=== PATIENT | female | born 1955 | race Caucasian/White ===

== ENCOUNTER → 2017-07-02 20:05 | Outpatient (CLI) | payer OTHER, SELFPAY | PROVIDERS: Visit Provider Nurse Practitioner Acute Care | DX: G47.33 Obstructive sleep apnea (adult) (pediatric) (principal); F03.90 Unspecified dementia, unspecified severity, without behavioral disturbance, psychotic disturbance, mood disturbance, and anxiety; R06.83 Snoring; R45.1 Restlessness and agitation | CPT/HCPCS: 95810 ==

== ENCOUNTER → 2017-08-07 19:57 | Outpatient (CLI) | payer OTHER, SELFPAY | PROVIDERS: Family Provider Family Medicine; PCP Family Medicine; Visit Provider Nurse Practitioner Acute Care | DX: G47.33 Obstructive sleep apnea (adult) (pediatric) (principal) | CPT/HCPCS: 95811 ==

== ENCOUNTER → 2018-02-21 16:43 | Outpatient (CLI) | payer OTHER, SELFPAY ==
[2018-02-21 17:16] LABS: Absolute Lymphocyte Count 1.69 X10^3/ul (0.83-4.51); Basophil# 0.05 X10^3/uL; Basophil% 0.8 % (0-1); Eosinophil# 0.29 X10^3/uL; Eosinophils% 4.4 % (0-5); Hematocrit 41.2 % (37-47); Hemoglobin 13.3 g/dl (12.0-15.0); Immature Platelet Fraction 1.1 % (1.0-7.9); Lymphocyte # 1.69 X10^3/ul (4.0); Lymphocyte % 25.6 % (19-41); Mean Corp Hgb Conc 32.3 g/gl (32-36); Mean Corpuscular Hgb 30.4 pg (27.0-32.0); Mean Corpuscular Volume 94.3 fL (81-99); Mean Platelet Vol. 9.8 fl (6.2-12.0); Monocyte# 0.53 X10^3/uL; Neutrophil # 4.02 X10^3/uL (2.7-7.7); Platelet Count 309 K/mm3 (150-450); RBC Distribution Width CV 12.6 % (11.6-14.6); RBC Distribution Width SD 43.5 fl (35.1-43.9); Red Blood Count 4.37 M/mm3 (4.2-5.4); Reticulocyte Count 1.28 % (0.5-1.5); White Blood Count 6.6 K/mm3 (4.4-11.0)
[2018-02-21 17:20] LABS: POSITIVE COUNT NO; POSITIVE DIFFERENTIAL NO; POSITIVE MORPHOLOGY NO
[2018-02-21 17:48] LABS: Vitamin B12 677 pg/mL (211-911); Vitamin D,25 Hydroxy 33.1 ng/mL (29.95-100.01)
[2018-02-21 17:49] LABS: Erythrocyte Sedimentation Rate 1 mm/hr (0-30)
[2018-02-21 18:26] LABS: Anion Gap 7 (5-15); BUN 16 mg/dL (7-18); BUN/Creat Ratio 20.3 RATIO (10-20); Calcium,Total 9.1 mg/dL (8.5-10.1); Chloride 102 mmol/L (98-107); Creatinine, Serum 0.79 mg/dL (0.55-1.02); EST Glomerular Filtration Rate 78 mL/min (>60); Est Glom Filt Rate - Afr Amer 94 mL/min (>60); Ferritin 32 ng/mL (8-252); Free T3 2.3 pg/mL (2.18-3.98); Glucose 102 mg/dL (74-106); Iron 72 ug/dL (50-170); Iron Binding Capacity,Total 349 ug/dL (250-450); Magnesium 2.2 mg/dL (1.6-2.6); Phosphorus 4.2 mg/dL (2.5-4.9); Potassium 3.9 mmol/L (3.5-5.1); Sodium Level 141 mmol/L (136-145); T4 Free Direct 0.94 ng/dL (0.76-1.46); Thyroid Stim Hormone (TSH) 0.55 uIU/mL (0.358-3.74)
== END ==
PROVIDERS: Family Provider Family Medicine; PCP Family Medicine; Referring Provider Nurse Practitioner Acute Care; Visit Provider Nurse Practitioner Acute Care
DX: E61.1 Iron deficiency (principal); G47.33 Obstructive sleep apnea (adult) (pediatric)
CPT/HCPCS: 36415; 80048; 82306; 82607; 82728; 82746; 83540; 83550; 83735; 84100; 84439; 84443; 84481; 85025; 85045; 85652

== ENCOUNTER → 2019-02-04 10:02 | Outpatient (CLI) | payer MEDICARE, SELFPAY ==
--- NOTE | 2019-02-04 10:27 | MRI_ITS ---
STUDY: MRI BRAIN WITH AND WITHOUT CONTRAST REASON FOR EXAM: Female, 63 years old. MA loss, chronic sinus infection, headaches TECHNIQUE: Standardized multiplanar fat and water weighted pulse sequences were obtained. IV Dotarem 10 was administered for the contrast portion of the examination. COMPARISON: None. FINDINGS: FINDINGS: The diffusion weighted axial images and ADC map images of the head show no evidence of restricted diffusion. The rob, medulla and midbrain and cerebellum appear to be normal. The ventricles and sulci are normal in size and shape. The cerebral hemispheres appear to be normal.The basal ganglia appear to be normal. No enhancing masses or lesions are seen. The gradient echo axial images are normal. No evidence of a Chiari I malformation is identified. The V4 segments of the vertebral artery, the basilar artery, the posterior cerebral arteries, the cavernous and supraclinoid carotid arteries, and the M1 segments of the middle cerebral arteries are all normal The orbits including the optic nerves and optic chiasm appear normal. The pituitary and pituitary infundibulum appear to be normal. The inner and outer tables of the skull are normal The frontal, and sphenoid sinuses are normal. A very mild amount of mucoperiosteal reaction as the floor of the maxillary sinuses and in the ethmoid sinuses due to a low-grade sinusitis. The mastoid air cells are normal. MRI/Brain W/WO Contrast IMPRESSION: Low-grade ethmoid and maxillary sinusitis. The overall all MRI appearance of the brain is normal. Electronically Signed: Baudilio Vora, at 12:51 EDT Tel , Service support ,
[2019-02-04 12:00] LABS: CREATININE FINGERSTICK 0.7 mg/dL (0.55-1.02); EGFR FINGERSTICK > 60.0000 mL/min (>60)
== END ==
PROVIDERS: Family Provider Family Medicine; PCP Family Medicine; Referring Provider Nurse Practitioner Family; Visit Provider Nurse Practitioner Family
DX: R41.3 Other amnesia (principal)
CPT/HCPCS: 70553; A9575

== ENCOUNTER → 2020-04-19 15:01 | Outpatient (CLI) | payer MEDICARE, SELFPAY ==
[2020-04-19 15:31] LABS: Creatinine, Serum 0.68 mg/dL (0.55-1.02); EST Glomerular Filtration Rate 93 mL/min (>60); Est Glom Filt Rate - Afr Amer 112 mL/min (>60)
--- NOTE | 2020-04-19 15:42 | CT_ITS ---
HISTORY: SPONDYLOLYSIS-PT HAVING LUMBAR SURG, CT DONE FOR VASCULAR ANATOMY ANTERIOR, R/O CALCIFIED AORTA/ILIAC VESSELS, PT DOES HAVE LOW ABD PAIN WHEN BENDING OVER ADDITIONAL HISTORY: None provided. EXAMINATION/TECHNIQUE: CT Abdomen And Pelvis W/ Contrast Injection CONTRAST: 100mL Isovue-300 IV contrast. Enteric contrast was given. A radiation dose optimization technique was used for this scan. Number of images including paperwork: [phone] COMPARISON: None FINDINGS: LOWER THORAX: No consolidation or pleural effusion. LIVER: No concerning focal lesion. GALLBLADDER: No radiopaque calculi. BILE DUCTS: No significant biliary dilatation. SPLEEN: Unremarkable. PANCREAS: Unremarkable. ADRENAL GLANDS: Unremarkable. KIDNEYS/URETERS: Unremarkable. BOWEL: No bowel obstruction. No significant bowel wall thickening. No localized inflammation. Large amount of colonic stool. APPENDIX: No evidence of appendicitis. FREE FLUID: No significant free fluid. FREE AIR: None. LYMPH NODES: No pathologic appearing adenopathy. PERITONEUM, RETROPERITONEUM AND MESENTERY: Otherwise unremarkable. VASCULATURE: Mild aortoiliac and renal atherosclerotic plaque with scattered calcifications. No aneurysm. PELVIS: Unremarkable bladder. No pelvic mass. ABDOMINAL WALL: Small fat-containing umbilical hernia. OSSEOUS AND SOFT TISSUE STRUCTURES: Bilateral L5 spondylolysis with 9 mm of anterolisthesis. Severe discogenic degenerative changes at L5-S1. Facet arthropathy. Anterior epidural calcified lesion at T12 measuring 0.8 x 1.5 x 1.8 cm (2:25 and sagittal image 74) resulting in moderate canal stenosis. Degenerative changes of the sacroiliac joints and symphysis pubis. CT/Abdomen/Pelvis WITH Contrast IMPRESSION: No acute abdominopelvic abnormality. Large amount of colonic stool. Bilateral L5 spondylolysis with spondylolisthesis. Calcified lesion in the spinal canal at T12 suggestive of meningioma with moderate canal stenosis. Individualized dose optimization techniques were used for this CT. at 0121 Reported and signed by: Yulia Hammond MD Electronically Signed: Yulia Hammond MD at 1:21 EST Tel , Service support ,
== END ==
PROVIDERS: PCP Family Medicine; Visit Provider Orthopaedic Surgery
DX: M43.07 Spondylolysis, lumbosacral region (principal)
CPT/HCPCS: 36415; 74177; 82565; Q9967

== ENCOUNTER 2020-05-30 17:10 | Inpatient (IN) | payer MEDICARE, SELFPAY ==
[2013-05-23 19:01] VITALS: BMI 20.7
[2020-05-30 18:05] VITALS: BP 142/81; PULSE 101; RESP 18; TEMP 37; O2SAT 99; BMI 21.7
[2020-05-30 20:20] VITALS: BP 131/66; PULSE 101; RESP 20; TEMP 37.3; O2SAT 98
[2020-05-30] MEDS: Magnesium Hydroxide 30 ML UDC PO (20:34)
[2020-05-30] MEDS: Acetaminophen 325 MG Tablet 650 MG PO (20:34)
[2020-05-30] MEDS: Latanoprost 0.005% 1 Bottle 1 DRP OPHTHALMIC (21:12)
[2020-05-30] MEDS: Memantine Hydrochloride 10 MG Tablet PO (21:13)
[2020-05-30] MEDS: Famotidine 20 MG Tablet PO (21:13)
[2020-05-30] MEDS: Ipratropium Bromide 0.06% NASAL SPRAY 2 SPRAY NASAL (21:13)
[2020-05-30] MEDS: Atorvastatin Calcium 20 MG Tablet PO (21:13)
[2020-05-30] MEDS: MELATONIN 3 MG TABLET PO (21:13)
[2020-05-30] MEDS: Gabapentin 600 MG Tablet PO (21:13)
--- NOTE | 2020-05-31 02:35 | NURSING ---
Reviewed and agree with COMPANY SECRETARY documentation and charting.
[2020-05-31] MEDS: Acetaminophen 325 MG Tablet 650 MG PO (05:09)
[2020-05-31] MEDS: Levothyroxine 112 MCG Tablet PO (05:09)
[2020-05-31] MEDS: Ipratropium Bromide 0.06% NASAL SPRAY 2 SPRAY NASAL ×3 (05:09→21:03)
[2020-05-31] MEDS: oxyCODONE 5 MG Tablet PO ×2 (05:10→14:30)
[2020-05-31] MEDS: Calcium Carb/Vitamin D 1 TABLET Tablet PO (08:45)
[2020-05-31] MEDS: Polyethylene Glycol 3350 17 GM PACKET PO (08:46)
[2020-05-31] MEDS: Docusate Sodium 100 MG Capsule PO (08:46)
[2020-05-31] MEDS: Venlafaxine XR 150 MG Capsule PO (08:46)
[2020-05-31] MEDS: Multivitamins,Ther W-Minerals Tablet 1 TABLET PO (08:46)
[2020-05-31] MEDS: Memantine Hydrochloride 10 MG Tablet PO ×2 (08:47→21:03)
[2020-05-31 09:09] VITALS: BP 129/82; PULSE 99; RESP 16; TEMP 37.2; O2SAT 97
--- NOTE | 2020-05-31 09:46 | PCM.HP.STD ---
Problem List (1) Physical debility Status: Acute Comment: due to recent Lumbar discectomy and Spinal fusion L4-S1 (2) History of lumbar spinal fusion Status: Acute Comment: L4-S1 April (3) Hyperlipidemia Status: Chronic (4) Hypothyroidism Status: Chronic (5) Allergic rhinitis Status: Chronic (6) Lumbar neuralgia Status: Chronic (7) Rosacea Status: Chronic (8) Glaucoma Status: Chronic (9) Dementia Status: Chronic Qualifiers: Alzheimer's disease onset: early-onset (10) Anxiety Status: Chronic (11) WILDER (obstructive sleep apnea) Status: Chronic Comment: on CPAP (12) GERD (gastroesophageal reflux disease) Status: Acute (13) Spondylolisthesis, lumbar region Status: Suspected (14) Constipation Status: Chronic (15) History of lumbar discectomy Status: Acute Comment: L4-5, L5-S1 History of Present Illness Date of Admission: 05/30/20 Chief Complaint: Physical debility due to recent Lumbar discectomy and lumbar fusion L4-S1 Lucía Cuba is a 64 year old F with a past medical history of hypothyroidism (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 She lives by herself and she was admitted to the in acute rehab unit at [facility] on 05/30/20 for > 3 hours of therapy daily to restore function/independence at or near her he level prior to the surgery. Lucía tells me that the week prior to surgery she had an abd XRAY that showed she was full of stool. Currently she is having some abdominal discomfort and her abd is distended and tympanic. She has no N/V. While at the [facility] she had urine retention which I suspect may be related to constipation. Past Medical History Past Medical History (Chronic Problems): Chronic Problems Hyperlipidemia (Chronic) Hypothyroidism (Chronic) Allergic rhinitis (Chronic) Lumbar neuralgia (Chronic) Rosacea (Chronic) Glaucoma (Chronic) Dementia (Chronic) Anxiety (Chronic) WILDER (obstructive sleep apnea) (Chronic) on CPAP Constipation (Chronic) Allergies ethinyl estradiol [From Seasonale ()] Allergy (Verified 05/30/20 18:37) Other levonorgestrel [From e ()] Allergy (Verified 05/30/20 18:37) Other Home Medications: Ambulatory Orders Medication Instructions Recorded Alendronate Sodium [Fosamax] 70 mg PO Q7D@0700 05/20/13 Calcium Carbonate/Vitamin D3 600 units PO TID 05/20/13 [Calcium 600 + Vit D Tablet] Levothyroxine [Synthroid] 100 mcg PO DAILY 05/20/13 Polyethylene Glycol 3350 [Miralax] 17 gm PO DAILY 05/20/13 Venlafaxine XR [Effexor Xr] 150 mg PO DAILY 05/20/13 Atorvastatin Calcium [Lipitor] 20 mg PO QHS 05/30/20 Diclofenac Sodium [Voltaren] 1 applicatio TOPICAL DAILY PRN 05/30/20 Docusate Sodium [Colace] 100 mg PO DAILY 05/30/20 Donepezil HCl 5 mg PO DAILY 05/30/20 Famotidine 20 mg PO QHS 05/30/20 Gabapentin 600 mg PO QHS 05/30/20 Ipratropium [place] 0.06% 2 spray NASAL TID 05/30/20 [ATROVENT NASAL SPRAY (g)] Latanoprost 0.005% [Xalatan 1 drp OPHTHALMIC QHS 05/30/20 Opthalmic] Levothyroxine [Synthroid] 112 mcg PO DAILY 05/30/20 Melatonin 3 mg PO QHS 05/30/20 Memantine Hydrochloride [Namenda] 10 mg PO BID 05/30/20 Metronidazole [Metrogel Topical] 1 applic TOPICAL DAILY PRN 05/30/20 Multivit with Minerals/Lutein [A 1 ea PO DAILY 05/30/20 Thru Z Select Tablet] Surgical History: cataract - Left eye, - - History of cervical colposcopy. Orthopedic procedure on the right knee for fracture repair. Lives: Alone, With Family Smoking Status: Never smoker Tobacco Use: Non-smoker Alcohol: Rare Drugs: None - *Family History Paternal History Items: Heart Disease - Father at age 60 Maternal History Items: Diabetes - Mother was at age 60. Sibling History Items: - - Her sister at the age of 52 due to stroke and also had a malignancy. Review of Systems Constitutional: Reports: - - di not sleep well last night due to abd discomfort, new place, etc. She has had trouble sleepin in the past and Dr. Chilel put her on Neurontin at and that helped.. Denies: Anorexia, Chills, Fever, Weight Change Eyes: Denies: Blurred vision HEENT: Denies: Difficulty Hearing, Difficulty Swallowing, Ear Pain, Head Aches, Nasal Congestion, Sinus Congestion, Sinus Drainage, Sore Throat Cardiovascular: Reports: Edema - of her feet since the surgery.....she has not had a problem with this in the past., Light Headedness - when she stands up. Denies: Chest Pain, Chest Tightness, Palpitations Respiratory: Denies: Cough, Shortness of Breath, Shortness of breath at rest, Sputum production Gastrointestinal: Reports: Constipation - chronic. Denies: Abdominal Pain, Diarrhea, Nausea, Vomiting Genitourinary: Reports: Retention - she has not had this in the past.......only since the surgery. Denies: Dysuria Musculoskeletal: Reports: Back Pain, Leg Pain - left......this is actually much better since the surgery.. Denies: Joint Pain, Joint Tenderness Skin: Reports: - - she is an anterior incision over the abd and a posterior incision over the lumbar spine. Denies: Jaundice, Rash, Wounds Neurological: Reports: Double vision - occasional.......she has been told this is due to thyroid disease. Denies: Blurred vision, Focal weakness, Numbness, Tingling, Tremor, Seizures Psychiatric: Reports: Anxiety. Denies: Depression, Homicidal Ideations, Suicidal Ideations Endocrine: Denies: Change in Body Habitus Hematologic/ Lymphatic: Denies: Easy Bruising, Easy Bleeding, Hx of blood clot VTE Information - Inpt Only VTE Present on Admission: No VTE Mechan Device Prophylaxis: SCD's, Knee High AUGUSTINE Hose Patient Problems: Active and Suspected Problems Physical debility (Acute) due to recent Lumbar discectomy and Spinal fusion L4-S1 History of lumbar spinal fusion (Acute) L4-S1 April GERD (gastroesophageal reflux disease) (Acute) Spondylolisthesis, lumbar region (Suspected) History of lumbar discectomy (Acute) L4-5, L5-S1 - Physical Exam Vitals/I&O's: Vital Signs Temp Pulse Resp BP Pulse Ox 99.0 F 99 16 129/82 H 97 05/31/20 09:09 05/31/20 09:09 05/31/20 09:09 05/31/20 09:09 05/31/20 09:09 Oxygen Delivery Method Room Air Weight: 115 lb Body Mass Index (BMI) 21.7 Intake and Output for Last 24 Hours 05/29/20 05/30/20 05/31/20 23:59 23:59 23:59 Intake Total 360 / 460 200 / 200 Output Total 1000 / 1000 Balance 360 / -240 -800 / -800 General: Alert, Oriented x3, Cooperative, No apparent distress, Well developed, Well nourished, - - she has trouble with short term memory HEENT: Atraumatic, PERRLA, EOMI, Normocephalic Oral: No Gingival or Mucosal Lesions/ Ulcerations, Dry Mucosa Neck: Supple, No JVD, Negative Carotid Bruits, No Nodes, No Nuchal Rigidity, Trachea Midline Lungs: Clear to auscultation, Normal air movement Cardiovascular: Regular rate, Regular Rhythm, Normal S1, Normal S2, No murmurs, No Ectopic Activity, No rub noted, No Gallop Abdomen: Bowel Sounds Present, Soft, Non Tender Extremities: No clubbing, No cyanosis, Capillary Refill Less than 3 Seconds, No Calf Tenderness, Edema - of the ankles BL, Peripheral Pulses Normal Skin: No rashes, No breakdown, Incision - midline over the abdomen and posterior over the midline lumbar spine Musculoskeletal: No Tenderness to Palpation of Joints or Extremities, No Muscle Wasting, Arthritic Changes Neurological: Cranial nerves II-XII grossly intact, Neuro grossly intact Psych/Mental Status: Normal Affect, Appropriate Current Medications Acetaminophen (Acetaminophen 325 Mg Tablet) 650 mg PO Q6H PRN PRN PRN Reason: Pain 1-10 or Fever Last Admin: 05/31/20 05:09 Dose: 650 mg Documented by: Atorvastatin Calcium (Atorvastatin Calcium 20 Mg Tablet) 20 mg PO QHS [facility] Last Admin: 05/30/20 21:13 Dose: 20 mg Documented by: Bisacodyl (Bisacodyl 10 Mg Suppository) 10 mg RECTAL .PRN X 1 PRN PRN Reason: Constipation Calcium/Vitamin D (Calcium Carb/Vitamin D 1 Tablet Tablet) 1 tablet PO TIDCM [facility] Last Admin: 05/31/20 08:45 Dose: 1 tablet Documented by: Docusate Sodium (Docusate Sodium 100 Mg Capsule) 100 mg PO DAILY [facility] Last Admin: 05/31/20 08:46 Dose: 100 mg Documented by: Donepezil HCl (Donepezil Hcl 5 Mg Tablet) 5 mg PO QHS [facility] Famotidine (Famotidine 20 Mg Tablet) 20 mg PO QHS [facility] Last Admin: 05/30/20 21:13 Dose: 20 mg Documented by: Gabapentin (Gabapentin 600 Mg Tablet) 600 mg PO QHS [facility] Last Admin: 05/30/20 21:13 Dose: 600 mg Documented by: Ipratropium [place] (Ipratropium [place] 0.06% Nasal [place]) 2 spray NASAL TID [facility] Last Admin: 05/31/20 05:09 Dose: 2 spray Documented by: Latanoprost (Latanoprost 0.005% 1 Bottle) [facility] Admin: 05/30/20 21:12 Dose: 1 drop Documented by: Levothyroxine Sodium (Levothyroxine 112 Mcg Tablet) 112 mcg PO DAILY@0600 [facility] Last Admin: 05/31/20 05:09 Dose: 112 mcg Documented by: Magnesium Hydroxide (Magnesium Hydroxide 30 Ml Udc) 30 ml PO .PRN X 1 PRN PRN Reason: Constipation Last Admin: 05/30/20 20:34 Dose: 30 ml Documented by: Melatonin (Melatonin 3 Mg Tablet) 3 mg PO QHS [facility] Last Admin: 05/30/20 21:13 Dose: 3 mg Documented by: Memantine (Memantine Hydrochloride 10 Mg Tablet) 10 mg PO BID [facility] Last Admin: 05/31/20 08:47 Dose: 10 mg Documented by: Metronidazole (Metronidazole 0.75% 1 Applic Tube) 1 applic TOPICAL DAILY PRN PRN PRN Reason: Rosacea Multivitamins/Minerals (Multivitamins,Ther W-Minerals Tablet) [facility] Last Admin: 05/31/20 08:46 Dose: 1 tablet Documented by: Oxycodone HCl (Oxycodone 5 Mg Tablet) 5 mg PO Q6H PRN PRN PRN Reason: Pain Score 6-10 Last Admin: 05/31/20 05:10 Dose: 5 mg Documented by: Polyethylene Glycol (Polyethylene Glycol 3350 17 Gm Packet) 17 gm PO DAILY [facility] Last Admin: 05/31/20 08:46 Dose: 17 gm Documented by: Venlafaxine HCl (Venlafaxine Xr 150 Mg Capsule) 150 mg PO DAILY [facility] Last Admin: 05/31/20 08:46 Dose: 150 mg Documented by: Assessment/Plan All Active Problems Physical debility (Acute) History of lumbar spinal fusion (Acute) GERD (gastroesophageal reflux disease) (Acute) History of lumbar discectomy (Acute) Impressions 1. Physical debility secondary to recent anterior lumbar fusion of L4-5 and L5-S1 with fusion of L4-S1. The surgery was done due to back pain and radicular pain on the LLE which was exacerbated by prolonged sitting, Standing for a long time and weight bearing. 2. HLD 3. Pj's hypothyroidism 4. GERD 5. allergic rhinitis 6. Glaucoma 7. chronic constipation 8. early onset dementia 9. WILDER (on CPAP) 10. Anxiety? She was initially started on Effexor for seats with menopause 11. Rosacea 12. FH of CVD PLAN PT for gait stability OT for ADL's ST for evaluation for memory loss and compensatory strategies Analgesics as needed Bowel protocol Fall precautions Assess for Anxiety/Depression GI prophylaxis with famotidine DVT prophylaxis with AUGUSTINE lozada and SCDs Follow up with PCP, Dr. Kulwinder Chilel and Dr. Chaim Otero following DC from Rehab CMP, TSH, T4, CBC, mag, vitamin D and phos now KUB aggressive bowel regimen to resolve the constipation and then will do a voiding trial. decrease the Ca and vitamin D to BID Decrease the Venlafaxine to 75 mg daily. Suspect the the SSRI/SNRI may be causing some anxiety and it contributes to constipation. Would like to transition to an SSRI if she still requires medication for Anxiety/depression. Would like to limit polypharmacy in light of the diagnosis of dementia. Ask if she has ever had a DEXA. orthostatic VS today. Urine in the Wisdom is a little cloudy and dark. Also check a UA Inpatient E&M: 57797 Init Hosp L3
--- NOTE | 2020-05-31 10:19 | PCM.RU.PYE ---
Admission Information Primary Diagnosis:: Physical disability secondary to recent lumbar discectomy at L4-5 and L5-S1 with fusion of L 4 through S1. Status Changes from Prescreening?: No changes Identified Actual Problem List:: Skin Intergrity, Pain, ALteration in Cmfrt, Cognitve Impr/Memory Loss, Alteration in Sleep, Mobility Impaired, Self Care Deficit, Alteration-Leisure Activ. Potential Problem List:: DVT, Bleeding, Infection, UTI, Aspiration, Falls, Skin Integrity, Depression Risk of Complications DVT: AUGUSTINE Hose, Sequential Compression Device Bleeding: Monitor Lab Values, Nursing to Teach Precautions for anti-coagulation therapy., Wound, if applicable, to be assessed every shift., Stroke patients assessed for lethargy or change in status. Infection: Clinical Staff to Monitor for S/S of infection:, S/S of infection include fever, redness, warmth, etc. Urinary Tract Infection: Monitor for frequency, burning, discomfort, or incontinence., Nursing will obtain urine sample for urinalysis and C&S when ordered. Aspiration: Clinical staff will monitor for coughing, drooling, congestion., Speech will evaluate swallowing and dsyphasia., Nursing will monitor patient swallowing during meals. Falls: Patient will be evaluated for Fall Precautions, Patient will be placed on Fall Precautions as indicated per protocol. Skin Breakdown: Nursing will assess skin daily using assessment tool., Nursing will place on Skin Breakdown Precautions as indicated. Pain: Clinical staff will assess patient's pain level per protocol., Medications will be given, if needed, and the pain level reassessed., Other methods: Massage, distraction, decrease stimulus, etc. used PRN. Plan of Care Patient requires physician specializing in physical medicine and rehab oversight to provide close medical supervision of rehab issues including: Pain Management, Sleep Problems, Bowel and Bladder, Medical and co-morbidity Management, DVT prophylaxis, Rehabilitation Leadership, Coordination of treatment team Patient needs Physical Therapy: For a minimum of 1 hour, At least 5 out of 7 days Patient needs Physical Therapy to improve:: Mobility, Mobility, Mobility, Strengthening, Transfers, Stretching, ROM, Endurance, Stairs, Gait, Balance Patient needs Occupational Therapy: For a minimum of 1 hour, At least 5 out of 7 days Patient needs Occupational Therapy to improve ADL's incl.: Eating, Grooming, Bathing, Dressing, Toileting, Toilet transfers, Community Reintegration, Higher functioning activities, Household tasks, Adaptive Equipment, Splinting, Other activities as determined Patient requires speech therapy: For a minimum of 1 hour, At least 5 out of 7 days Patient requires speech therapy for: Cognition, Language Skills, Compensatory Strategies Patient requires 24/ Rehabilitation Nursing for: Pain Issues, Identifying and preventing risk factors, Monitoring and reporting current medical conditions, Assisting with ambulation, transfer, and all ADL's, Teaching patients about disease process and medications, Family teaching, Providing safe environment, Bowel and Bladder Issues, Skin integrity, Medication Management Patient needs Stranding Machine Operator/ Case Management for: Discharge Planning, Arranging Home Equipment or Services, Family Interventions Patient needs Dietary and Nutrition Services for: Adequate Nutrition, Nutritional Supplements, Nutritional Education Goals Patient will remain: free from falls, or injury at time of discharge. Patient will perform bed mobility at: MOD I level of assist. Patient will complete transfers from bed to chair at: MOD I level of assist. Patient will ambulate: with MOD I assist, with LRD, - - 200 feet Patient will complete upper body dressing at: MOD I level of assist. Patient will complete lower body dressing at: MOD I level of assist. Patient will complete toileting at: MOD I level of assist. Patient will perform bathing at: MOD I level of assist. Patient will complete grooming at: MOD I level of assist. Patient will complete home management skills at: MOD I level of assist. Patient will achieve: at MOD I assist, - - 3 steps Patient will have pain level of: of 3 or less Patient's skin will: remain intact, free from infection. Patient will receive: adequate nutrition. Discharge Planning Pt Prognosis for Sig. Practical Improv. w/in Reasonable Time: Good Estimated Length of stay (days): 21 Anticipated D/C Destination: Home with Home Health Was Preadmission Assessment Accurate?: Yes
--- NOTE | 2020-05-31 10:35 | CASEMGMT ---
Social Work Discussed code status with pt. Pt confirmed full code. Explained insurance with [employer] 06/07. Pt expressed understanding. Tiffanie Spence, ANIMATION PRODUCER EMPLOYEE RELATIONS ADVISOR
[2020-05-31 12:22] LABS: Hemoglobin 9.1 g/dL (12.0-15.0); Mean Corp Hgb Conc 31.4 g/dL (32-36); Mean Corpuscular Volume 95.7 fL (81-99); Mean Platelet Vol. 9.3 fl (6.2-12.0); Platelet Count 309 K/mm3 (150-450); RBC Distribution Width CV 12.3 % (11.6-14.6); RBC Distribution Width SD 42.7 fl (35.1-43.9); Red Blood Count 3.03 M/mm3 (4.2-5.4); White Blood Count 6.6 K/mm3 (4.4-11.0)
--- NOTE | 2020-05-31 12:45 | RAD_ITS ---
STUDY: X-RAY - ABDOMEN/PELVIS REASON FOR EXAM: Female, 64 years old. DISTENTION, RECENT LUMBAR DECOMPRESSION SX X3 DAYS AGO TECHNIQUE: Single AP view of the abdomen / pelvis. COMPARISON: None. FINDINGS: There is a moderate amount of colonic fecal material. The visualized liver, spleen and kidneys are grossly normal in size and morphology. Normal soft tissue structures. Status post fusion at the L4-L5 and L5-S1 levels with screw and senthil fixation and disc space. RAD/Abdomen Single View (Portable) IMPRESSION: Moderate degree of fecal material is seen in the colon. Status post lower lumbar surgery. Electronically Signed: Bartolome Cisneros MD at 13:06 EST , Service support ,
[2020-05-31 12:54] LABS: Vitamin D,25 Hydroxy 29.8 ng/mL
[2020-05-31] MEDS: Magnesium Hydroxide 30 ML UDC 60 ML PO (12:54)
[2020-05-31] MEDS: Acetaminophen 500 MG Tablet 1000 MG PO ×2 (12:56→21:02)
[2020-05-31 12:57] LABS: ALB/GLOB Ratio 0.8 RATIO (0.9-2.4); AST(SGOT) 31 U/L (15-37); Alanine Aminotransfer ALT/SGPT 32 U/L (13-56); Albumin, Serum 2.8 g/dL (3.2-5.0); Alkaline Phosphatase 80 U/L (45-117); Anion Gap 4 (5-15); BUN 10 mg/dL (7-18); Calcium,Total 9.1 mg/dL (8.5-10.1); Chloride 104 mmol/L (98-107); Creatinine, Serum 0.56 mg/dL (0.55-1.02); EST Glomerular Filtration Rate 116 mL/min (>60); Est Glom Filt Rate - Afr Amer 140 mL/min (>60); Estimated Creatinine Clearance 41.76 ml/min; Globulin 3.4 g/dL (2.2-4.2); Glucose 98 mg/dL (74-106); Magnesium 2.2 mg/dL (1.6-2.6); Phosphorus 2.3 mg/dL (2.5-4.9); Potassium 3.7 mmol/L (3.5-5.1); Protein, Total 6.2 g/dL (6.4-8.2); Sodium Level 138 mmol/L (136-145); T4 Free Direct 1.27 ng/dL (0.76-1.46); Thyroid Stim Hormone (TSH) 0.33 uIU/mL (0.358-3.74)
[2020-05-31 14:00] LABS: Bacteria 0 SEEN /hpf (None Seen); Mucous, Urine 0 SEEN /hpf (<or=2+); Red Blood Cells-Urine 0 SEEN /hpf (0-5); White Blood Cells 0 SEEN /hpf (0-5)
[2020-05-31 14:06] LABS: Color, Urine Yellow (Yellow); Glucose, Dipstick Normal (Normal); Ketone-Dipstick Negative (Negative); Leukocyte Esterase-Dipstick Negative /ul (Negative); Nitrite-Dipstick Negative (Negative); Occult Blood-Urine Negative /ul (Negative); Protein-Dipstick Negative (Negative); Urine Bilirubin Dipstick Negative (Negative); Urine Clarity Clear (Clear); Urine Urobilinogen Normal (Normal)
[2020-05-31 14:16] LABS: Squamous Epithelial Cells - UA 0-5 SEEN /hpf (5-10)
[2020-05-31] MEDS: Fleet Enema 1 ML RECTAL (14:16)
[2020-05-31] MEDS: Calcium Carbonate 500 MG Tablet PO (16:15)
[2020-05-31 19:51] VITALS: BP 134/81; PULSE 110; RESP 16; TEMP 36.8; O2SAT 99
[2020-05-31 19:56] VITALS: PULSE 110; RESP 18; O2SAT 97
[2020-05-31] MEDS: Latanoprost 0.005% 1 Bottle 1 DRP OPHTHALMIC (21:01)
[2020-05-31] MEDS: Senna/Docusate Sodium 1 Tablet 2 TABLET PO (21:02)
[2020-05-31] MEDS: Gabapentin 600 MG Tablet PO (21:02)
[2020-05-31] MEDS: Famotidine 20 MG Tablet PO (21:02)
[2020-05-31] MEDS: MELATONIN 3 MG TABLET PO (21:03)
[2020-05-31] MEDS: Atorvastatin Calcium 20 MG Tablet PO (21:03)
[2020-05-31] MEDS: Donepezil HCl 5 MG Tablet PO (21:03)
[2020-05-31] MEDS: 0.9% Saline Lock 10 ML Syringe IV ×2 (21:07→21:11)
[2020-06-01] MEDS: Ipratropium Bromide 0.06% NASAL SPRAY 2 SPRAY NASAL ×3 (06:18→21:55)
[2020-06-01] MEDS: Acetaminophen 500 MG Tablet 1000 MG PO ×3 (06:19→21:54)
[2020-06-01] MEDS: Levothyroxine 112 MCG Tablet PO (06:19)
[2020-06-01 07:26] VITALS: BP 111/67; PULSE 71; RESP 16; TEMP 36.3; O2SAT 99
[2020-06-01] MEDS: Polyethylene Glycol 3350 17 GM PACKET PO (07:29)
[2020-06-01] MEDS: Calcium Carbonate 500 MG Tablet PO ×2 (07:30→17:22)
[2020-06-01] MEDS: Venlafaxine XR 75 MG Capsule PO (07:30)
[2020-06-01] MEDS: Multivitamins,Ther W-Minerals Tablet 1 TABLET PO (07:30)
[2020-06-01] MEDS: oxyCODONE 5 MG Tablet PO ×3 (07:30→17:30)
[2020-06-01] MEDS: Senna/Docusate Sodium 1 Tablet 2 TABLET PO ×2 (07:30→21:54)
[2020-06-01] MEDS: Memantine Hydrochloride 10 MG Tablet PO ×2 (07:30→21:55)
--- NOTE | 2020-06-01 08:56 | PN_ITS ---
Progress Note Afebrile Heart rate is frequently over 100, up to 110 but heart rate this morning is 71. Blood pressure is well controlled She is maintaining appropriate oxygen saturation on room air. Good oral intake on 05/31/2020 at 2620. Weight today is 124 pounds and 5 ounces. KUB yesterday was consistent with moderate fecal accumulation. On physical examination there was no stool in the rectal vault. She had good sphincter tone. There are external hemorrhoids present. She was given 60 cc of milk of magnesia and a fleets enema and she moved her bowels. All lab from yesterday was personally reviewed. White blood cell count and platelets are within normal limits. The hemoglobin is 9.1 with an MCV of 95.7 and normal RDW. Likely acute blood loss anemia. BMP is unremarkable. Phosphorus was mildly decreased at 2.3 and a phosphorus supplement was ordered. Magnesium was normal at 2.2 and the LFTs were normal. TSH is low at 0.33 but the free T4 is within normal limits at 1.27. UA had 0 WBCs and 0 RBCs. Urine pH was borderline high at 8. alert and oriented to place and month and year Mucous membranes are moist, no mucosal lesions Lungs-clear to auscultation Heart-regular rate and rhythm, no gallop, no murmur Abdomen-distended but less so than at admission. Still tympanic. Decreased bowel sounds. Nontender to palpation Trace ankle edema, no calf pain No rashes, the incision is intact with a small amount of serous sanguinous drainage. Impressions 1. debility due to recent lumbar fusion and discectomy for lumbar canal stenosi s and spondylolisthesis 2. anxiety/depression 3. insomnia 4. radicular pain in the RLE 5. dementia 6. severe BYRD's with tapering Effexor in the past 7. chronic constipation Will discuss with Dr. Lacey whether the Levothyroid dose needs to be decreased since the TSH is low. She has AF and anxiety and subclinical hyperthyroidism could be contributing. Continue the current therapy Dulcolax tabs and a Dulcolax suppository 4 hours later today If the distension is less in the AM will likely DC the Wisdom STROKE Vital Signs/Narrative: Vital Signs Temp Pulse Resp BP Pulse Ox 06/01/20 07:26 97.3 F L 71 16 111/67 99 Inpatient E&M: 29345 Subs Hosp L2
[2020-06-01] MEDS: Bisacodyl 5 MG Tablet 10 MG PO (12:02)
[2020-06-01] MEDS: 0.9% Saline Lock 10 ML Syringe IV ×3 (12:02→22:01)
--- NOTE | 2020-06-01 16:09 | CHAPLAIN ---
Type of Pastoral Visit _x__ Initial Visit ___ Follow-up Visit ___ On-call Visit ___ General Patient Visit ___ Spiritual Assessment ___ Family Conference ___ Bereavement ___ Rapid Response ___ Code Blue ___ Other (describe below) Pastoral Care Referral From _x__ Patient ___ Family ___ Nurse ___ Physician ___ Heel Packer ___ Americanization Teacher ___ Other (describe below) Sacrament/Intervention _x__ Active listening ___ Anointing ___ Jainism ___ Bereavement ___ Communion ___ Ngozi exploration ___ _x__ Life review _x__ Prayer ___ Reconciliation ___ Sacrament of Sick ___ Supportive presence ___ Wedding ___ Other (describe below) Pastoral Comments
[2020-06-01] MEDS: Hydrocortisone 2.5% Crm 1 APPLIC TOPICAL ×2 (17:22→20:42)
[2020-06-01] MEDS: Bisacodyl 10 MG Suppository RECTAL (18:38)
[2020-06-01 19:20] VITALS: BP 124/69; PULSE 89; RESP 18; TEMP 36.8
[2020-06-01] MEDS: Latanoprost 0.005% 1 Bottle 1 DRP OPHTHALMIC (21:53)
[2020-06-01] MEDS: Famotidine 20 MG Tablet PO (21:54)
[2020-06-01] MEDS: MELATONIN 3 MG TABLET PO (21:55)
[2020-06-01] MEDS: Gabapentin 600 MG Tablet PO (21:55)
[2020-06-01] MEDS: Donepezil HCl 5 MG Tablet PO (21:55)
[2020-06-01] MEDS: Atorvastatin Calcium 20 MG Tablet PO (21:55)
[2020-06-02] MEDS: Acetaminophen 500 MG Tablet 1000 MG PO ×3 (05:42→21:30)
[2020-06-02] MEDS: Levothyroxine 112 MCG Tablet PO (05:42)
[2020-06-02] MEDS: Ipratropium Bromide 0.06% NASAL SPRAY 2 SPRAY NASAL ×3 (05:42→21:28)
[2020-06-02] MEDS: oxyCODONE 5 MG Tablet PO (06:41)
[2020-06-02 07:30] VITALS: BP 115/63; PULSE 83; RESP 12; TEMP 37.1; O2SAT 94
[2020-06-02] MEDS: Senna/Docusate Sodium 1 Tablet 2 TABLET PO (07:43)
[2020-06-02] MEDS: Venlafaxine XR 75 MG Capsule PO (07:44)
[2020-06-02] MEDS: Multivitamins,Ther W-Minerals Tablet 1 TABLET PO (07:44)
[2020-06-02] MEDS: Calcium Carbonate 500 MG Tablet PO ×2 (07:44→17:56)
[2020-06-02] MEDS: Memantine Hydrochloride 10 MG Tablet PO ×2 (07:44→21:30)
[2020-06-02] MEDS: Polyethylene Glycol 3350 17 GM PACKET PO (07:45)
--- NOTE | 2020-06-02 09:54 | CASEMGMT ---
Social Work IDT met with patient and dtr for Team meeting. Discussed patient's progress in therapy and nursing. Pt making slow progress, still having pain. Dr, adjusting medications and pain regimen. Pt following back precautions well. ST working on memory strategies for recall. Pt will remove cath today. Explained [employer] insurance with NRD 06/07 and continued stay is not guaranteed. Will ReTeam next week. SW to continue to follow. Tiffanie Spence, SURGICAL RESIDENT FOREST SCIENCE PROFESSOR
[2020-06-02 10:00] VITALS: PULSE 83
--- NOTE | 2020-06-02 10:18 | PCM.PN.BLA ---
Progress Note Lucía was seen on team rounds today. Her daughter Kayla was present. Afebrile VSS - HR is better today with the last 3 sets of VS's showing a HR WNL BP is well controlled Maintaining appropriate oxygen saturation on RA Oral intake is good Discussed with nursing - no problems that need addressed Reviewed the PT/OT/ST notes Medication list reviewed. Lucía is c/o pain in the R buttock and the R lateral hip and thigh. It improves with changes in position but it is keeping her up at night. She is having bowel movements but still has a lot of gas. She denies CP, SOB, calf pain, N/v/abd pain......she still feels s little bloated but the abd distension is much improved. Kayla is worried about tapering the Effexor. This was tried in the past and when she got to 37.5 she had severe BYRD's. CAn not start an SSRI until she has been off SNRI for 4-5 days. Urine is pale and clear. She is alert and appropriate. Makes good eye contact and interacts with staff when talking. Lungs - CTA HRRR, no gallop no calf pain with palpation very mild ankle edema....improving with compression and getting her walking more ab - less distended, NT to palpation Impressions 1. debility due to recent lumbar fusion and discectomy for lumbar canal stenosis and spondylolisthesis 2. anxiety/depression 3. insomnia 4. radicular pain in the RLE 5. dementia 6. severe BYRD's with tapering Effexor in the past 7. chronic constipation DC the Miralax because it is causing a lot of gas Start Metamucil BID Instead of increasing Gabapentin to treat insomnia and radicular pain will give the GAbapentin at 7 PM and add Pamelor 10 mg at HS......will help with the radicular pain, BYRD's and insomnia and will help blunt the side effects of tapering the effexor. HH in the AM Neuropathy pain cream to the R buttock and the R later hip and thigh ICE and heat to the low back, straight back chairs, position changes when she has pain and I asked her to lie down when she is having worsening radicular pain because this helps to relieve the pain Continue therapy STROKE Vital Signs/Narrative: Vital Signs Temp Pulse Resp BP Pulse Ox 06/02/20 07:30 98.8 F 83 12 115/63 94 Inpatient E&M: 56264 Subs Hosp L2
[2020-06-02] MEDS: Hydrocortisone 2.5% Crm 1 APPLIC TOPICAL ×2 (11:18→21:45)
[2020-06-02] MEDS: Gabapentin 600 MG Tablet PO (21:27)
[2020-06-02] MEDS: Amitriptyline 10 MG Tablet PO (21:28)
[2020-06-02] MEDS: Donepezil HCl 5 MG Tablet PO (21:28)
[2020-06-02] MEDS: MELATONIN 3 MG TABLET PO (21:29)
[2020-06-02] MEDS: Atorvastatin Calcium 20 MG Tablet PO (21:29)
[2020-06-02] MEDS: Psyllium 1 PACKET PO (21:29)
[2020-06-02] MEDS: Famotidine 20 MG Tablet PO (21:30)
[2020-06-02] MEDS: Neuropathy Pain Cream Compound 60 CLICK TUBE TOPICAL (21:30)
[2020-06-02] MEDS: Latanoprost 0.005% 1 Bottle 1 DRP OPHTHALMIC (21:31)
[2020-06-02 21:47] VITALS: BP 139/82; PULSE 92; RESP 18; TEMP 36.8; O2SAT 98
[2020-06-03] MEDS: Ipratropium Bromide 0.06% NASAL SPRAY 2 SPRAY NASAL ×3 (04:36→21:44)
[2020-06-03] MEDS: Levothyroxine 112 MCG Tablet PO (04:37)
[2020-06-03] MEDS: Acetaminophen 500 MG Tablet 1000 MG PO ×3 (04:37→21:42)
[2020-06-03 06:42] LABS: Hematocrit 27.4 % (37-47); Hemoglobin 8.5 g/dL (12.0-15.0)
[2020-06-03 07:30] VITALS: BP 149/83; PULSE 76; RESP 18; TEMP 36.5; O2SAT 94
[2020-06-03] MEDS: Multivitamins,Ther W-Minerals Tablet 1 TABLET PO (08:34)
[2020-06-03] MEDS: Calcium Carbonate 500 MG Tablet PO ×2 (08:34→17:10)
[2020-06-03] MEDS: Venlafaxine XR 75 MG Capsule PO (08:35)
[2020-06-03] MEDS: Psyllium 1 PACKET PO ×2 (08:35→21:43)
[2020-06-03] MEDS: Neuropathy Pain Cream Compound 60 CLICK TUBE TOPICAL ×2 (08:35→21:43)
[2020-06-03] MEDS: Memantine Hydrochloride 10 MG Tablet PO ×2 (08:35→21:42)
[2020-06-03] MEDS: Gabapentin 600 MG Tablet PO (20:19)
[2020-06-03] MEDS: Amitriptyline 10 MG Tablet PO (21:42)
[2020-06-03] MEDS: Famotidine 20 MG Tablet PO (21:42)
[2020-06-03] MEDS: Donepezil HCl 5 MG Tablet PO (21:43)
[2020-06-03] MEDS: Atorvastatin Calcium 20 MG Tablet PO (21:43)
[2020-06-03] MEDS: MELATONIN 3 MG TABLET PO (21:43)
[2020-06-03] MEDS: Latanoprost 0.005% 1 Bottle 1 DRP OPHTHALMIC (21:44)
[2020-06-03 22:00] VITALS: BP 119/72; PULSE 92; RESP 16; TEMP 36.6; O2SAT 99
[2020-06-03] MEDS: Hydrocortisone 2.5% Crm 1 APPLIC TOPICAL (22:07)
[2020-06-04] MEDS: Acetaminophen 500 MG Tablet 1000 MG PO ×3 (04:36→21:50)
[2020-06-04] MEDS: Ipratropium Bromide 0.06% NASAL SPRAY 2 SPRAY NASAL ×3 (04:39→21:52)
[2020-06-04] MEDS: Levothyroxine 112 MCG Tablet PO (04:39)
--- NOTE | 2020-06-04 04:45 | NURSING ---
pt awoke this am with a frontal lobe headache rated 8/10. prefers to do the scheduled tylenol early to see if that will adequately control pain. pt reports she thinks she is having headaches d/t the weaning dosage of effexor.
[2020-06-04] MEDS: Calcium Carbonate 500 MG Tablet PO ×2 (08:04→17:02)
[2020-06-04] MEDS: Multivitamins,Ther W-Minerals Tablet 1 TABLET PO (08:04)
[2020-06-04] MEDS: Psyllium 1 PACKET PO ×2 (08:05→21:51)
[2020-06-04] MEDS: Neuropathy Pain Cream Compound 60 CLICK TUBE TOPICAL ×2 (08:05→21:48)
[2020-06-04] MEDS: Venlafaxine XR 75 MG Capsule PO (08:05)
[2020-06-04] MEDS: Memantine Hydrochloride 10 MG Tablet PO ×2 (08:05→21:51)
[2020-06-04] MEDS: oxyCODONE 5 MG Tablet PO (08:11)
[2020-06-04 10:00] VITALS: BP 130/64; PULSE 99; RESP 16; TEMP 36.7; O2SAT 96
[2020-06-04] MEDS: Hydrocortisone 2.5% Crm 1 APPLIC TOPICAL ×2 (13:26→21:50)
[2020-06-04 18:52] VITALS: BP 140/73; PULSE 84; RESP 18; TEMP 36.8; O2SAT 98
[2020-06-04] MEDS: MELATONIN 3 MG TABLET PO (20:00)
[2020-06-04] MEDS: Gabapentin 600 MG Tablet PO (20:03)
[2020-06-04] MEDS: Atorvastatin Calcium 20 MG Tablet PO (21:51)
[2020-06-04] MEDS: Donepezil HCl 5 MG Tablet PO (21:51)
[2020-06-04] MEDS: Famotidine 20 MG Tablet PO (21:51)
[2020-06-04] MEDS: Amitriptyline 10 MG Tablet PO (21:51)
[2020-06-04] MEDS: Latanoprost 0.005% 1 Bottle 1 DRP OPHTHALMIC (21:52)
[2020-06-05] MEDS: Levothyroxine 112 MCG Tablet PO (05:14)
[2020-06-05] MEDS: Acetaminophen 500 MG Tablet 1000 MG PO ×3 (05:14→21:46)
[2020-06-05] MEDS: Ipratropium Bromide 0.06% NASAL SPRAY 2 SPRAY NASAL ×3 (05:14→21:45)
[2020-06-05 09:09] VITALS: BP 121/81; PULSE 80; RESP 16; TEMP 36.1; O2SAT 96
--- NOTE | 2020-06-05 09:10 | NURSING ---
Ambulated hallways via FWW with staff standby x2 laps, tolerated well.
[2020-06-05] MEDS: Multivitamins,Ther W-Minerals Tablet 1 TABLET PO (09:32)
[2020-06-05] MEDS: Venlafaxine XR 75 MG Capsule PO (09:32)
[2020-06-05] MEDS: Calcium Carbonate 500 MG Tablet PO ×2 (09:33→17:04)
[2020-06-05] MEDS: Psyllium 1 PACKET PO (09:34)
[2020-06-05] MEDS: Memantine Hydrochloride 10 MG Tablet PO ×2 (09:34→21:46)
[2020-06-05] MEDS: Neuropathy Pain Cream Compound 60 CLICK TUBE TOPICAL ×2 (09:37→21:47)
[2020-06-05] MEDS: oxyCODONE 5 MG Tablet PO (09:38)
[2020-06-05] MEDS: Famotidine 20 MG Tablet PO (21:46)
[2020-06-05] MEDS: Atorvastatin Calcium 20 MG Tablet PO (21:46)
[2020-06-05] MEDS: Gabapentin 600 MG Tablet PO (21:46)
[2020-06-05] MEDS: MELATONIN 3 MG TABLET PO (21:47)
[2020-06-05] MEDS: Donepezil HCl 5 MG Tablet PO (21:47)
[2020-06-05] MEDS: Amitriptyline 10 MG Tablet PO (21:47)
[2020-06-05] MEDS: Latanoprost 0.005% 1 Bottle 1 DRP OPHTHALMIC (21:48)
[2020-06-05 22:00] VITALS: BP 146/87; PULSE 85; RESP 15; RESP 16; TEMP 36.9; O2SAT 98
[2020-06-06] MEDS: Levothyroxine 112 MCG Tablet PO (04:40)
[2020-06-06] MEDS: Acetaminophen 500 MG Tablet 1000 MG PO ×3 (04:40→22:07)
[2020-06-06] MEDS: Ipratropium Bromide 0.06% NASAL SPRAY 2 SPRAY NASAL ×3 (04:41→22:00)
[2020-06-06 07:38] VITALS: BP 137/83; PULSE 88; RESP 16; TEMP 37.3; O2SAT 97
[2020-06-06] MEDS: Calcium Carbonate 500 MG Tablet PO ×2 (09:34→16:46)
[2020-06-06] MEDS: Multivitamins,Ther W-Minerals Tablet 1 TABLET PO (09:34)
[2020-06-06] MEDS: Psyllium 1 PACKET PO ×2 (09:34→22:09)
[2020-06-06] MEDS: Memantine Hydrochloride 10 MG Tablet PO ×2 (09:35→22:09)
[2020-06-06] MEDS: Venlafaxine XR 75 MG Capsule PO (09:35)
[2020-06-06] MEDS: Senna/Docusate Sodium 1 Tablet 2 TABLET PO (09:36)
[2020-06-06] MEDS: Neuropathy Pain Cream Compound 60 CLICK TUBE TOPICAL ×2 (09:37→22:05)
[2020-06-06] MEDS: oxyCODONE 5 MG Tablet PO (12:13)
--- NOTE | 2020-06-06 12:35 | PCM.PN.BLA ---
Progress Note Afebrile VSS Maintaining appropriate oxygen saturation on RA Oral intake is good Her bowels are moving daily now with the current stooling regimen. Discussed with nursing - no problems that need addressed Reviewed the PT/OT/ST notes. OT reports that she is still getting pain in the R buttock and the R lateral hip when sitting and it gets better if she stands for a brief time. She tells me that this pain is getting better as time progresses. Medication list reviewed. She is only taking 1 5 mg tablet of oxycodone daily for pain. She states her pain gets better every day. Denies SOB, CP, calf pain, N/V. she is c/o dry mouth and also of having a BYRD in the AM. She also has a stuffy nose. No cough. Constipation has resolved on the current bowel regimen She recognized me immediately and called me by name. She is pleasant and appears in NAD. Lungs - CTA HRRR abd is soft and NT, it is non-distended and she has less gas since the Miralax was discontinued and Metamucil was started incisions have no sign of infection no calf tenderness Impressions 1. debility due to recent lumbar fusion and discectomy for lumbar canal stenosis and spondylolisthesis 2. anxiety/depression - good mood, does not appear anxious 3. insomnia - better than at admission 4. radicular pain in the RLE - 5. dementia 6. severe BYRD's with tapering Effexor in the past.....BYRD in the AM now but she is also having stuffy nose. 7. chronic constipation - resolved 8. low TSH - curbside consult with endocrinology. Will decrease the dose on Saturday to a half dose and then repeat the TSH and the T4 in 4-6 weeks DC the Pamelor and increase the Gabapentin at HS and add 100 mg BID during the day Afrin 2 sprays each nostril at HS continue therapy Continue the effexor at 75 daily for another week or so before tapering again.......when the Effexor is down to 37.5 mg it will likely be safe to start her on Sertraline 25 mg daily without causing serotonin S.......since the doses of both drugs are low. decrease Levothyroid on Saturday to 04/30 tab Inpatient E&M: [id number] Subs Hosp L2
[2020-06-06] MEDS: Gabapentin 600 MG Tablet PO (18:01)
[2020-06-06] MEDS: Gabapentin 300 MG Capsule PO (20:06)
[2020-06-06 20:09] VITALS: BP 119/67; PULSE 77; RESP 14; TEMP 36.6; O2SAT 100
[2020-06-06 22:00] VITALS: PULSE 77; RESP 15; O2SAT 100
[2020-06-06] MEDS: Latanoprost 0.005% 1 Bottle 1 DRP OPHTHALMIC (22:03)
[2020-06-06] MEDS: Famotidine 20 MG Tablet PO (22:04)
[2020-06-06] MEDS: Atorvastatin Calcium 20 MG Tablet PO (22:07)
[2020-06-06] MEDS: MELATONIN 3 MG TABLET PO (22:07)
[2020-06-06] MEDS: Oxymetazoline 0.05% 1 SPRAY SPRAY.BTL 2 SPRAY NASAL (22:08)
[2020-06-06] MEDS: Donepezil HCl 5 MG Tablet PO (22:08)
[2020-06-07] MEDS: Levothyroxine 112 MCG Tablet PO (04:34)
[2020-06-07] MEDS: Ipratropium Bromide 0.06% NASAL SPRAY 2 SPRAY NASAL ×3 (04:35→21:02)
[2020-06-07] MEDS: Acetaminophen 500 MG Tablet 1000 MG PO ×3 (04:35→21:03)
[2020-06-07 07:03] VITALS: BP 128/68; PULSE 73; RESP 16; TEMP 36.4; O2SAT 99
[2020-06-07] MEDS: Venlafaxine XR 75 MG Capsule PO (08:02)
[2020-06-07] MEDS: Calcium Carbonate 500 MG Tablet PO ×2 (08:02→17:31)
[2020-06-07] MEDS: Gabapentin 100 MG Capsule PO ×2 (08:03→17:31)
[2020-06-07] MEDS: Multivitamins,Ther W-Minerals Tablet 1 TABLET PO (08:03)
[2020-06-07] MEDS: Memantine Hydrochloride 10 MG Tablet PO ×2 (08:03→21:03)
[2020-06-07] MEDS: Psyllium 1 PACKET PO ×2 (08:03→21:06)
[2020-06-07] MEDS: Neuropathy Pain Cream Compound 60 CLICK TUBE TOPICAL ×2 (08:04→21:20)
--- NOTE | 2020-06-07 10:56 | PCM.PN.BLA ---
Progress Note Afebrile VSS Maintaining appropriate oxygen saturation on RA Oral intake is good Discussed with nursing - no problems that need addressed Reviewed the PT/OT/ST notes. Ana M has done well with PT and she is ambulating without an AD today. she has done steps. she is still requiring moderate assistance with LB dressing and bathing and minimal assist with UB dressing. she has chronic dementia and is on medication. She had a set back/exacerbation post-operatively with increased difficulty with short term memory, confusion, attention and language. she is still having trouble repeating her back precautions.....no bending, lifting or twisting. Medication list reviewed. She tried the full face mask with CPAP last night and she was not able to get a tight fit but, nursing adjusted and then she was able to sleep. She had a BYRD again this morning. It is in the fronto/temporal area. She also gets fatigue in the shoulders when doing her hair and some pain in the shoulder girdle. Denies sore throat. No cough. She has not had any more diplopia since admission. Need to make sure she does not have TA with PMR the abd incision is intact with no erythema and no DC. It is non-tender to palpation. Alert She has a little tremor of her hands today. She was able to remember her spinal precautions today and this is the first time she got 3/3. she has been doing better since speech has been working with her using memory aids. Lungs - CTA with good air exchange. H - regular today with no gallop abd - soft and NT no calf pain. no rashes and no skin breakdown We discussed the change in the Levothyroid dosing with her and why we changed the dose. Impressions 1. debility due to recent lumbar fusion and discectomy for lumbar canal stenosis and spondylolisthesis. Physically she is doing very well with PT. Progress with memory, attention, language has been slower. The pain medications and anesthesia likely caused some increase with memory issues in this patient with hx of dementia on Namenda and Aricept BUT, she is making good progress and for the first time today is able to tell me 3/3 of the spinal precautions 2. anxiety/depression - good mood, does not appear anxious. I told her that I do not believe that the headaches in the AM are related to decreasing the dose of the Effexor. With the c/o weakness of the shoulder girdle, location of the BYRD, her age and the diplopia 3. insomnia - better than at admission. The CPAP has a lot to do with this. Will have RT continue to work with her on a mask she can tolerate 4. radicular pain in the RLE - getting better she has not had to stand today to relieve the pain and her pain was a 1 when I was in her room and she is in the chair at the bedside 5. dementia 6. severe BYRD's with tapering Effexor in the past.....BYRD in the AM now but she is also having stuffy nose, has not been sleeping as well the past few nights due to complications with the CPAP nasal pillows causing severe pain in the nostrils 7. chronic constipation - resolved. 8. low TSH - curbside consult with endocrinology. Will decrease the dose on Saturday to a half dose and then repeat the TSH and the T4 in 4-6 weeks Check an ESR Continue therapy Would like to see her consistently be able to recall her back precautions prior to DC because she does live alone and even though her dtr will be able to check on her a few times during the day she will be alone for 4-5 hours at a time. STROKE Vital Signs/Narrative: Vital Signs Temp Pulse Resp BP Pulse Ox 06/07/20 07:03 97.5 F L 73 16 128/68 H 99 Inpatient E&M: [id number] Subs Hosp L2
[2020-06-07] MEDS: Gabapentin 300 MG Capsule PO ×2 (18:52→20:57)
[2020-06-07 20:56] VITALS: BP 130/64; PULSE 92; RESP 14; TEMP 36.7; O2SAT 100
[2020-06-07] MEDS: Donepezil HCl 5 MG Tablet PO (21:01)
[2020-06-07] MEDS: Oxymetazoline 0.05% 1 SPRAY SPRAY.BTL 2 SPRAY NASAL (21:01)
[2020-06-07] MEDS: MELATONIN 3 MG TABLET PO (21:02)
[2020-06-07] MEDS: Atorvastatin Calcium 20 MG Tablet PO (21:02)
[2020-06-07] MEDS: Famotidine 20 MG Tablet PO (21:03)
[2020-06-07] MEDS: Latanoprost 0.005% 1 Bottle 1 DRP OPHTHALMIC (21:05)
[2020-06-07 22:00] VITALS: PULSE 92; RESP 14; O2SAT 100
--- NOTE | 2020-06-08 00:47 | NURSING ---
Addendum entered by Coral Gonzalez 06/08/20 01:08: A new medium nasal mask was fitted to pt by RT. Original Note: RT in pt room assessing CPap mask. Pt found the face mask uncomfortable that RT brought the previous night. Pt inquiring about the nasal mask. RT is attempting to locate a new mask at this time.
[2020-06-08] MEDS: Ipratropium Bromide 0.06% NASAL SPRAY 2 SPRAY NASAL ×3 (05:11→19:52)
[2020-06-08] MEDS: Levothyroxine 112 MCG Tablet PO (05:12)
[2020-06-08] MEDS: Acetaminophen 500 MG Tablet 1000 MG PO ×3 (05:12→19:50)
[2020-06-08] MEDS: Multivitamins,Ther W-Minerals Tablet 1 TABLET PO (07:49)
[2020-06-08] MEDS: Psyllium 1 PACKET PO ×2 (07:50→19:51)
[2020-06-08] MEDS: Gabapentin 100 MG Capsule PO ×3 (07:50→19:52)
[2020-06-08] MEDS: Calcium Carbonate 500 MG Tablet PO ×2 (07:50→17:08)
[2020-06-08] MEDS: Memantine Hydrochloride 10 MG Tablet PO ×2 (07:50→19:52)
[2020-06-08] MEDS: Venlafaxine XR 75 MG Capsule PO (07:50)
[2020-06-08] MEDS: Hydrocortisone 2.5% Crm 1 APPLIC TOPICAL (07:51)
[2020-06-08] MEDS: Neuropathy Pain Cream Compound 60 CLICK TUBE TOPICAL ×2 (07:58→19:58)
[2020-06-08 08:23] VITALS: BP 111/65; PULSE 72; RESP 16; TEMP 36.5; O2SAT 95
[2020-06-08] MEDS: oxyCODONE 5 MG Tablet PO (10:23)
--- NOTE | 2020-06-08 11:40 | PCM.PN.BLA ---
Progress Note Afebrile Vital signs stable Slept well last night Good bowel function Still having some pain in the buttocks and the R lateral thigh. It is better with Gabapentin. She was started on 100 mg BID in addition to the GAbapentin she takes at night for her sleep disorder. She is tolerating so far with no excessive drowsiness. She had a BYRD again this morning but after she is up a while it goes away.....she did not wear the CPAP all night and this may be the reason for the BYRD. I do not think tapering the Effexor has anything to do with the BYRD's. Alert, oriented X 3, NAD, pleasant Lungs - CTA HRRR ABD is sot, ND, NT no calf pain and no ankle edema Impressions 1. physical debility due to recent spine surgery 2. dementia - complicates DC 3. radicular pain L groin and R groin and R lateral thigh 4. hx of chronic constipation - much better on the current bowel regimen and with cutting the Effexor dose in 1/2. Anxiety has also improved with decreasing the Effexor. She was also having sweats which have resolved with tapering the dose. The plan is to Wean off Effexor completely and start on an SSRI rather than an SSRI/SNRI 5. anxiety/depression Continue the current medications. Plan DC Saturday if all goes well STROKE Vital Signs/Narrative: Vital Signs Temp Pulse Resp BP Pulse Ox 06/08/20 08:23 97.7 F L 72 16 111/65 95 Inpatient E&M: [id number] Subs Hosp L1
--- NOTE | 2020-06-08 14:56 | CASEMGMT ---
Social Work Notified pt of insurance issuing LCD 06/10, DC 06/11. Pt very excited. Will further discuss DC needs in Team tomorrow. Tiffanie Spence, CSR SUPERVISOR PASTRY
[2020-06-08] MEDS: Gabapentin 300 MG Capsule PO ×2 (17:08→19:56)
[2020-06-08] MEDS: Famotidine 20 MG Tablet PO (19:51)
[2020-06-08] MEDS: Atorvastatin Calcium 20 MG Tablet PO (19:51)
[2020-06-08] MEDS: Donepezil HCl 5 MG Tablet PO (19:51)
[2020-06-08] MEDS: Senna/Docusate Sodium 1 Tablet 2 TABLET PO (19:51)
[2020-06-08] MEDS: Latanoprost 0.005% 1 Bottle 1 DRP OPHTHALMIC (19:52)
[2020-06-08] MEDS: MELATONIN 3 MG TABLET PO (19:52)
[2020-06-08] MEDS: Oxymetazoline 0.05% 1 SPRAY SPRAY.BTL 2 SPRAY NASAL (19:57)
[2020-06-08 22:00] VITALS: BP 114/68; PULSE 78; RESP 18; TEMP 36.6; O2SAT 99
[2020-06-09] MEDS: Ipratropium Bromide 0.06% NASAL SPRAY 2 SPRAY NASAL ×3 (04:46→20:47)
[2020-06-09] MEDS: Acetaminophen 500 MG Tablet 1000 MG PO ×3 (04:46→20:42)
[2020-06-09] MEDS: Levothyroxine 112 MCG Tablet PO (04:48)
--- NOTE | 2020-06-09 05:42 | NURSING ---
Pt tearful this a.m. while staff tends to SL incontinence of BM. Staff reassured pt and attempted to redirect pt. Pt ambulated around unit x1 assist.
[2020-06-09 08:00] VITALS: BP 133/67; PULSE 78; RESP 18; TEMP 36.2; O2SAT 100
[2020-06-09] MEDS: Psyllium 1 PACKET PO ×2 (08:08→20:41)
[2020-06-09] MEDS: Senna/Docusate Sodium 1 Tablet 2 TABLET PO ×2 (08:08→20:44)
[2020-06-09] MEDS: Venlafaxine XR 75 MG Capsule PO (08:08)
[2020-06-09] MEDS: Neuropathy Pain Cream Compound 60 CLICK TUBE TOPICAL ×2 (08:09→20:46)
[2020-06-09] MEDS: Calcium Carbonate 500 MG Tablet PO ×2 (08:09→16:57)
[2020-06-09] MEDS: Memantine Hydrochloride 10 MG Tablet PO ×2 (08:09→20:42)
[2020-06-09] MEDS: Multivitamins,Ther W-Minerals Tablet 1 TABLET PO (08:09)
--- NOTE | 2020-06-09 11:34 | CASEMGMT ---
Social Work IDT met with patient and dtr for Team meeting. Discussed patient's progress in therapy and nursing. IDT and pt in agreement with [place] 06/11, per insurance. Pt agreeable to [facility] PT/OT/ST. Provided list of [facility] agencies. Pt and dtr prefer [facility], then [facility]. [facility] does not service pt area. [facility] unable to accept as [facility] does not offer contracts to any other [facility] agency aside from [facility] if the pt lives in [facility]. Pt made aware and agreeable. Referral made to [facility] PT/OT/ST. Pt has no DME needs. Dtr to transport at [place]. Plan: DC home alone 06/11 with [facility] PT/OT/ST, No DME GRAEME Carmichael
--- NOTE | 2020-06-09 13:12 | PCM.PN.BLA ---
Progress Note Lucía was seen on team rounds today. Her daughter Kayla was present for rounds. Afebrile-since admission VSS-blood pressure and heart rate are within normal limits. Maintaining appropriate oxygen saturation on RA Oral intake is good Discussed with nursing - no problems that need addressed Reviewed the PT/OT/ST notes Medication list reviewed. She tried a new CPAP mask that fits only over her nose and she slept well last night. Very minimal BYRD this AM. The pain in the R groin/R lateral thigh is nearly gone. She is able to recall her spine precautions, no bending, no lifting, no twisting. She has had no adverse effect to the addition of 100 mg of gabapentin twice daily and it has been effective in controlling her pain with ambulation. She denies chest pain, calf pain, shortness of breath, palpitations, abdominal pain. Her bowels are moving regularly now and she is very happy about this. alert and oriented X 3, sitting in a chair at the bedside. NAD Lungs - CTA HRRR, no gallop and no MM abd - soft and NT, normal BS's, not distended no calf pain and no edema No rashes and no skin breakdown. no focal neurologic deficits Impressions 1. Physical debility secondary to recent lumbar fusion/discectomy for lumbar canal stenosis and spondylolisthesis. 2. History of anxiety/depression 3. Insomnia-currently being treated by Dr. Chilel with gabapentin 4. Radicular pain right lower extremity and left groin-much improved with addition of gabapentin 100 mg p.o. twice daily 5. Alzheimer's dementia on Namenda and Aricept 6. WILDER on CPAP 7. Chronic constipation-resolved with current bowel regimen and tapering of Effexor 8. Mild iatrogenic hyperthyroidism-dose on Saturday will be one half a tab and she will continue 1 tab the other days 9. Acute blood loss anemia In the a.m. begin 37.5 mg of Effexor daily for 10 days and then DC On Saturday start Sertraline 25 mg daily X 7 days and then increase to 50 mg daily in 10 days Plan on DC 06/11 MOD I [facility], BMP and ESR in the AM Inpatient E&M: [id number] Subs Hosp L2
[2020-06-09] MEDS: Gabapentin 100 MG Capsule PO (16:57)
[2020-06-09 19:34] VITALS: BP 140/98; PULSE 92; RESP 18; TEMP 36.6
[2020-06-09] MEDS: guaiFENesin 600 MG Tablet PO (20:41)
[2020-06-09] MEDS: Gabapentin 300 MG Capsule PO ×2 (20:42→22:31)
[2020-06-09] MEDS: Atorvastatin Calcium 20 MG Tablet PO (20:43)
[2020-06-09] MEDS: Famotidine 20 MG Tablet PO (20:45)
[2020-06-09] MEDS: Donepezil HCl 5 MG Tablet PO (20:47)
[2020-06-09] MEDS: Latanoprost 0.005% 1 Bottle 1 DRP OPHTHALMIC (20:47)
[2020-06-09] MEDS: MELATONIN 3 MG TABLET PO (20:47)
[2020-06-10 05:56] LABS: Hematocrit 33.4 % (37-47); Hemoglobin 10.1 g/dL (12.0-15.0)
[2020-06-10] MEDS: Acetaminophen 500 MG Tablet 1000 MG PO ×3 (05:58→21:34)
[2020-06-10] MEDS: Levothyroxine 112 MCG Tablet PO (05:58)
[2020-06-10] MEDS: Ipratropium Bromide 0.06% NASAL SPRAY 2 SPRAY NASAL ×3 (05:59→21:44)
--- NOTE | 2020-06-10 06:00 | NURSING ---
PT ABLE TO COMPLETELY WASH SELF AT BATHROOM SINK AND GET SELF COMPLETELY DRESSED INCLUDING AUGUSTINE HOSE ON INDEPENDENTLY.
[2020-06-10 06:13] LABS: Erythrocyte Sedimentation Rate 13 mm/hr (0-30)
[2020-06-10 06:31] LABS: Anion Gap 4 (5-15); BUN 17 mg/dL (7-18); BUN/Creat Ratio 23.9 RATIO (10-20); Calcium,Total 9.6 mg/dL (8.5-10.1); Chloride 104 mmol/L (98-107); Creatinine, Serum 0.71 mg/dL (0.55-1.02); EST Glomerular Filtration Rate 87 mL/min (>60); Est Glom Filt Rate - Afr Amer 105 mL/min (>60); Estimated Creatinine Clearance 41.76 ml/min; Glucose 108 mg/dL (74-106); Sodium Level 137 mmol/L (136-145)
[2020-06-10 07:32] VITALS: BP 122/67; PULSE 72; RESP 12; TEMP 36.1; O2SAT 100
[2020-06-10] MEDS: Senna/Docusate Sodium 1 Tablet 2 TABLET PO ×2 (08:32→21:34)
[2020-06-10] MEDS: Multivitamins,Ther W-Minerals Tablet 1 TABLET PO (08:32)
[2020-06-10] MEDS: Psyllium 1 PACKET PO ×2 (08:33→21:35)
[2020-06-10] MEDS: Calcium Carbonate 500 MG Tablet PO ×2 (08:33→17:27)
[2020-06-10] MEDS: Gabapentin 100 MG Capsule PO ×2 (08:33→17:27)
[2020-06-10] MEDS: Venlafaxine XR 37.5 MG Capsule PO (08:34)
[2020-06-10] MEDS: Memantine Hydrochloride 10 MG Tablet PO ×2 (08:34→21:34)
[2020-06-10] MEDS: Neuropathy Pain Cream Compound 60 CLICK TUBE TOPICAL ×2 (08:35→21:51)
[2020-06-10 09:21] LABS: Phosphorus 4.2 mg/dL (2.5-4.9)
--- NOTE | 2020-06-10 09:25 | PN_ITS ---
Progress Note Afebrile since admission VSS-blood pressure is within normal limits except for rare occasions when it is elevated. Maintaining appropriate oxygen saturation on RA Oral intake is good Discussed with nursing - no problems that need addressed Reviewed the PT/OT/ST notes Medication list reviewed. All lab was personally reviewed. Hemoglobin is now 10.1, up from 8.512 521. Sed rate is within normal limits at 13. BMP is unremarkable. Stress is now normal at 4.2. She slept well last night. No BYRD this AM. She is c/o some aching in her R ankle.....after she is up and walking it goes away. She did not mention the pain in the groin or in the R lateral thigh. She complains of being weepy for a short time one afternoon. Denies constipation, bloating, abd pain, CP, SOB, calf pain. alert and oriented X 3, seen in the therapy room. NAD. talkative. No tremors in the hands and she denies feeling anxious. She is very outgoing and friendly. MMM Lungs - CTA with excellent air exchange HRRR abd - soft, ND, NT no ankle edema, no redness and no increased warmth to touch. no calf pain Impressions 1. Physical debility secondary to recent lumbar fusion/discectomy for lumbar canal stenosis and spondylolisthesis. 2. History of anxiety/depression 3. Insomnia-currently being treated by Dr. Chilel with gabapentin 4. Radicular pain right lower extremity and left groin-much improved with addition of gabapentin 100 mg p.o. twice daily 5. Alzheimer's dementia on Namenda and Aricept 6. WILDER on CPAP 7. Chronic constipation-resolved with current bowel regimen and tapering of Effexor 8. Mild iatrogenic hyperthyroidism-dose on Saturday will be one half a tab and she will continue 1 tab the other days 9. Acute blood loss anemia 10. Hypophosphatemia - resolved with supplementation Plan discharge tomorrow to home. [facility] with [facility] home health care PT/OT/ST no DME needed. STROKE Vital Signs/Narrative: Vital Signs Temp Pulse Resp BP Pulse Ox 06/10/20 07:32 97 F L 72 12 122/67 H 100 Inpatient E&M: [id number] Subs Hosp L2
[2020-06-10 09:36] VITALS: PULSE 72; RESP 14; O2SAT 100
--- NOTE | 2020-06-10 11:33 | DCINST_ITS ---
- Discharge Diagnoses Current Active Problems: Current Active and Chronic Problems Physical debility (Acute) due to recent Lumbar discectomy and Spinal fusion L4-S1 History of lumbar spinal fusion (Acute) L4-S1 April Hyperlipidemia (Chronic) Hypothyroidism (Chronic) Allergic rhinitis (Chronic) Lumbar neuralgia (Chronic) Rosacea (Chronic) Glaucoma (Chronic) Dementia (Chronic) Anxiety (Chronic) WILDER (obstructive sleep apnea) (Chronic) on CPAP GERD (gastroesophageal reflux disease) (Acute) Constipation (Chronic) History of lumbar discectomy (Acute) L4-5, L5-S1 You will use the following diet at home:: No restrictions Your food should be the consistency of: Regular Your liquids should be the consistency of: Regular/Thin Discharge Activity: May Not Drive, May not drive while taking narcotic pain medications., May Shower, Use Walker - until you are told by the physical therapist or Dr. Otero that you no longer have to use it., - - Remember BLT! No bending, Lifting or twisting Weight Bearing Status: Full weight bearing Additional Activity Instructions:: ALWAYS use the walker if your are outside of your house for the next few months while it is still cold, snowing and icy.........no falls. Call your doctor if your incision/area has: Continuous Slow Oozing, Sudden Increased Bleeding, Increased Pain/ Swelling, Increased Redness, Foul Smelling Discharge, Swelling at the incision site Call your doctor if you observe: Fever of 101 or Higher, Numbness or Tingling, Inability to urinate, Inability to have a bowel movement, Shortness of breath, Dizziness, Fainting spells, Chest pain, Increased palpitations (irregular heartbeat), Calf discomfort, Uncontrolled pain, - - DO NOT use alcohol with narcotic pain medication. DO NOT make important decisions while taking narcotic medication. Do not drive while taking narcotic medication. If you have problems while taking your medication (rash, itching, nausea etc.) call your primary care doctor. Suture Line Care: Avoid Pulling/Pushing, Avoid Pinching/Bending Cleanse incision/area with: Soap & Water Additional Instructions: 1. No bending at the waist 2. No lifting more than 5 lbs 3. No twisting 4. The Effexor is being weaned off slowly because it was causing increased constipation and anxiety (which contributes to insomnia). You have come down from 150 mg a day to 37.5 mg and you are doing fine. Finding the right CPAP mask for you has really helped with the headaches you were having in the morning. I do NOT think the headaches are related to the Effexor in any way. This coming Saturday you will be starting a low dose of Zoloft (also called Sertraline). This medication controls both anxiety and depression. Having a weepy day once in a while is normal. Most people are weepy at times. Find some things that you really like to do that can distract you when you are weepy is a great idea. Make a list of things that you like to enjoy and that relax you. Most of the time less medication is better. Many doctors add meds but few get taken away. ALL drugs have side effects and all can cause drug interactions. One of the biggest reasons for memory loss and confusion, sunitha when you are over 65, is polypharmacy. We give you all these medications and you get tired and confused and have no quality of life. Pain is a constant engineer exhauster as we get older. Arthritis and stiffness when you sit too long are very common. It gets better when you get up and walk so instead of reaching for a pill take a walk. Ice helps with joint pain and so does Voltaren cream, Errol Dyson, hot compresses, changing positions. Always try these things first before reaching for a pill. Getting older is not for the faint of heart. We need to tolerate some pain.....eventually you won't notice because it becomes part of your life and it is more an annoyance than a big problem. If pain causes you not to sleep, to not be able to walk or get up from a chair, if it makes you cry or causes you to tremble then you need to see someone about this and taking some pain medication is appropriate. The more medication a patient with dementia takes the more confused they can get. Take only what is prescribed to you and limit over the counter medications. Tylenol, rest, moving, changing position, ice, heat, doing an activity that you enjoy to distract you, getting out of the house, calling a friend, eating some ICE CREAM can all help when you are feeling pain or feeling weepy. Stay active. 5. It has been a real pleasure to meet you and get to know you. I knew you would be WONDERFUL the way Kayla talks about you. Stay well Lucía and keep moving forward and finding fun things to do!. If you are ever in the mood I would love to do some art with you and Kayla sometime......it is relaxing and I do it a lot. If you have something I can help you with or you have a question after you leave please call me! My office number is [phone] and my cell phone is [phone]. PS: I spoke to the teletype or varitype keyboard operator about the Levothyroid dosing since your medication is a SMidgen too high and she recommended taking the 112 mcg dose every day except Saturday and on Saturday you will take only a half tablet. Dr. Scruggs will want to recheck the TSH and T4 in 4-6 weeks. The teletype or varitype keyboard operator likes to keep the TSH (thyroid stimulating hormone around 0.5 and no lower. Your TSH is 0.33. You need a little extra Vitamin D in the winter and your Vitamin D was a smidgen low on what you were taking so I gave you a prescription for Vitamin D that you will take during the winter months when you can not get out and enjoy the sun. You can eliminate the extra Vitamin D in the summer months when your are out in the garden. Pending Tests on Discharge: none Allergies/Adverse Reactions: Allergies ethinyl estradiol [From Seasonale ()] Allergy (Verified 05/30/20 18:37) Other levonorgestrel [From Seasonale ()] Allergy (Verified 05/30/20 18:37) Other Medications to take at Discharge Alendronate Sodium [Fosamax] 70 mg PO Q7D@0700 05/20/13 Calcium Carbonate/Vitamin D3 [Calcium 600-Vit D3 400 Tablet] 600 units PO TID 05/20/13 Atorvastatin Calcium [Lipitor] 20 mg PO QHS 05/30/20 Diclofenac Sodium [Voltaren] 1 applicatio TOPICAL DAILY PRN 05/30/20 Donepezil HCl 5 mg PO DAILY 05/30/20 Famotidine 20 mg PO QHS 05/30/20 Ipratropium [place] 0.06% [ATROVENT NASAL SPRAY] 2 spray NASAL TID 05/30/20 Latanoprost 0.005% [Xalatan Opthalmic] 1 drp OPHTHALMIC QHS 05/30/20 Melatonin 3 mg PO QHS 05/30/20 Memantine Hydrochloride [Namenda] 10 mg PO BID 05/30/20 Metronidazole [Metrogel Topical] 1 applic TOPICAL DAILY PRN 05/30/20 Multivit with Minerals/Lutein [A Thru Z Select Tablet] 1 ea PO DAILY 05/30/20 Acetaminophen [Tylenol] 1,000 mg PO Q8 PRN tablet 06/10/20 Arthritis Pain Compound 0 click TOPICAL BID gm 06/10/20 Cholecalciferol (VIT D3) [Vitamin D3] 1,000 unit PO DAILY #30 tab 06/10/20 Gabapentin [Neurontin] 100 mg PO BIDCM #60 cap 06/10/20 Gabapentin [Neurontin] 300 mg PO 1900,2100 #60 cap 06/10/20 Guaifenesin [Mucinex] 600 mg PO QHS PRN #30 tab 06/10/20 Hydrocortisone 2.5% Crm [Hytone] 1 applic TOPICAL TID PRN PRN #1 tube 06/10/20 Levothyroxine [Synthroid] 112 mcg PO DAILY #30 tab 06/10/20 Multivitamins,Ther W-Minerals [Multivitamin With Minerals ([facility])] 1 tablet PO DAILYCM tablet 06/10/20 Oxycodone [Oxyir] 5 mg PO Q4H PRN PRN 7 Days #14 tablet 06/10/20 Psyllium [Metamucil] 1 packet PO BID packet 06/10/20 Senna/Docusate Sodium [Senokot-S] 2 tab PO BID #120 tab 06/10/20 Sertraline HCl [Zoloft] 25 mg PO DAILY #30 tab 06/10/20 Venlafaxine XR [Effexor Xr] 37.5 mg PO DAILY #14 cap 06/10/20 The following prescriptions were given: Venlafaxine XR [Effexor Xr] 37.5 mg PO DAILY #14 cap Transmission Status: Pending to [id number] Hydrocortisone 2.5% Crm [Hytone] 1 applic TOPICAL TID PRN PRN #1 tube PRN Reason: Itching Transmission Status: Pending to [id number] Guaifenesin [Mucinex] 600 mg PO QHS PRN #30 tab PRN Reason: Nasal Congestion Transmission Status: Pending to [facility] Gabapentin [Neurontin] 100 mg PO BIDCM #60 cap Transmission Status: Pending to [facility] Gabapentin [Neurontin] 300 mg PO 1900,2100 #60 cap Transmission Status: Pending to [facility] Oxycodone [Oxyir] 5 mg PO Q4H PRN PRN 7 Days #14 tablet PRN Reason: Pain Score 4-10 Transmission Status: Received by [facility] Senna/Docusate Sodium [Senokot-S] 2 tab PO BID #120 tab Transmission Status: Pending to [facility] Levothyroxine [Synthroid] 112 mcg PO DAILY #30 tab Transmission Status: Pending to [facility] Cholecalciferol (VIT D3) [Vitamin D3] 1,000 unit PO DAILY #30 tab Transmission Status: Pending to [facility] Sertraline HCl [Zoloft] 25 mg PO DAILY #30 tab Transmission Status: Pending to [facility] Primary Care Physician: Perla Scruggs MD [Primary Care Provider] - Test Results: Test results from this visit will be discussed in further detail at your follow- up appointment, if applicable. Please Follow Up With: Dr Otero Please Follow Up With: Perla Scruggs MD (PCP) Please Follow Up With: Kulwinder Chilel MD Proposed Discharge Date: 06/11/20
--- NOTE | 2020-06-10 12:18 | DS.PCM_ITS ---
Discharge Date and Diagnosis - Problem List Patient Problems: Active and Suspected Problems Physical debility (Acute) due to recent Lumbar discectomy and Spinal fusion L4-S1 History of lumbar spinal fusion (Acute) L4-S1 April GERD (gastroesophageal reflux disease) (Acute) History of lumbar discectomy (Acute) L4-5, L5-S1 Date of Admission: 05/30/20 Date of Discharge: 06/11/20 - Primary Discharge Diagnosis Acute Problems: Active Problems Physical debility (Acute) due to recent Lumbar discectomy and Spinal fusion L4-S1 History of lumbar spinal fusion (Acute) L4-S1 April History of lumbar discectomy (Acute) L4-5, L5-S1 Acute blood loss anemia Radicular pain bilateral groin and right lateral thigh Mild iatrogenic hyperthyroidism Hypophosphatemia-resolved - Secondary Discharge Diagnosis Chronic Problems: Chronic Problems Vitamin D deficiency (Chronic) Insomnia (Chronic) Anxiety and depression (Chronic) Osteoarthritis (Chronic) Hyperlipidemia (Chronic) Hypothyroidism (Chronic) Allergic rhinitis (Chronic) Lumbar neuralgia (Chronic) Rosacea (Chronic) Glaucoma (Chronic) Dementia (Chronic) WILDER (obstructive sleep apnea) (Chronic) on CPAP Spondylolisthesis, lumbar region (Chronic) Constipation (Chronic) Hospital Course and Treatment Imaging Results: Clinical Impression(s) from Imaging Studies KUB X-Ray 05/31/20 12:45 IMPRESSION: Moderate degree of fecal material is seen in the colon. Status post lower lumbar surgery. Electronically Signed: Bartolome Cisneros MD at 13:06 EST , Service support , Laboratory Last Values WBC 6.6 K/mm3 (4.4-11.0) 05/31/20 12:10 RBC 3.03 M/mm3 (4.2-5.4) L 05/31/20 12:10 Hgb 10.1 g/dL (12.0-15.0) L 06/10/20 05:47 Hct 33.4 % (37-47) L 06/10/20 05:47 MCV 95.7 fL (81-99) 05/31/20 12:10 MCH 30.0 pg (27.0-32.0) 05/31/20 12:10 MCHC 31.4 g/dL (32-36) L 05/31/20 12:10 RDW Std Deviation 42.7 fl (35.1-43.9) 05/31/20 12:10 RDW Coeff of Carol 12.3 % (11.6-14.6) 05/31/20 12:10 Plt Count 309 K/mm3 (150-450) 05/31/20 12:10 MPV 9.3 fl (6.2-12.0) 05/31/20 12:10 ESR 13 mm/hr (0-30) 06/10/20 05:47 Sodium 137 mmol/L (136-145) 06/10/20 05:47 Potassium 4.0 mmol/L (3.5-5.1) 06/10/20 05:47 Chloride 104 mmol/L (98-107) 06/10/20 05:47 Carbon Dioxide 29.0 mmol/L (21.0-32.0) 06/10/20 05:47 Anion Gap 4 (5-15) L 06/10/20 05:47 BUN 17 mg/dL (7-18) 06/10/20 05:47 Creatinine 0.71 mg/dL (0.55-1.02) 06/10/20 05:47 Estim Creat Clear Calc 41.76 ml/min 06/10/20 05:47 Est GFR (MDRD) Af Amer 105 mL/min (>60) 06/10/20 05:47 Est GFR (MDRD) Non-Af 87 mL/min (>60) 06/10/20 05:47 BUN/Creatinine Ratio 23.9 RATIO (10-20) H 06/10/20 05:47 Glucose 108 mg/dL (74-106) H 06/10/20 05:47 Calcium 9.6 mg/dL (8.5-10.1) 06/10/20 05:47 Phosphorus 4.2 mg/dL (2.5-4.9) 06/10/20 05:47 Magnesium 2.2 mg/dL (1.6-2.6) 05/31/20 12:10 Total Bilirubin 0.50 mg/dL (0.20-1.00) 05/31/20 12:10 AST 31 U/L (15-37) 05/31/20 12:10 ALT 32 U/L (13-56) 05/31/20 12:10 Alkaline Phosphatase 80 U/L (45-117) 05/31/20 12:10 Total Protein 6.2 g/dL (6.4-8.2) L 05/31/20 12:10 Albumin 2.8 g/dL (3.2-5.0) L 05/31/20 12:10 Globulin 3.4 g/dL (2.2-4.2) 05/31/20 12:10 Albumin/Globulin Ratio 0.8 RATIO (0.9-2.4) L 05/31/20 12:10 Vitamin D 25-Hydroxy 29.8 ng/mL 05/31/20 12:10 TSH 0.33 uIU/mL (0.358-3.74) L 05/31/20 12:10 Free T4 1.27 ng/dL (0.76-1.46) 05/31/20 12:10 Urine Color Yellow (Yellow) 05/31/20 13:50 Urine Clarity Clear (Clear) 05/31/20 13:50 Urine pH 8.0 (5.0 - 8.0) 05/31/20 13:50 Ur Specific [place] 1.010 (1.002-1.030) 05/31/20 13:50 Urine Protein Negative mg/dl (Negative) 05/31/20 13:50 Urine Glucose (UA) Normal mg/dl (Normal) 05/31/20 13:50 Urine Ketones Negative mg/dl (Negative) 05/31/20 13:50 Urine Occult Blood Negative /ul (Negative) 05/31/20 13:50 Urine Nitrite Negative (Negative) 05/31/20 13:50 Urine Bilirubin Negative mg/dL (Negative) 05/31/20 13:50 Urine Urobilinogen Normal mg/dl (Normal) 05/31/20 13:50 Ur Leukocyte Esterase Negative /ul (Negative) 05/31/20 13:50 Urine RBC 0 SEEN /hpf (0-5) 05/31/20 13:50 Urine WBC 0 SEEN /hpf (0-5) 05/31/20 13:50 Ur Squamous Epith Cells 0-5 SEEN /hpf (5-10) 05/31/20 13:50 Urine Bacteria 0 SEEN /hpf (None Seen) 02/02/21 13:50 Urine Mucus 0 SEEN /hpf (<or=2+) 05/31/20 13:50 Microbiology 05/31/20 15:19 Stool Stool Occult Blood (BRETT) - Final.... Negative None Operations: None Procedures: None Summary of Care Provided: Lucía Cuba is a 64 year old F with a past medical history of hypothyroidism (secondary to Pj's thyroiditis), hyperlipidemia, allergic rhinitis, rosacea, glaucoma, anxiety, GERD, chronic constipation, WILDER (on CPAP), early onset dementia and lumbar degenerative disc disease/degenerative joint disease/spondylolisthesis with radicular pain in the left lower extremity who recently had a anterior lumbar discectomy of L4-5 and L5-S1 with fusion of L4- S1. She lives by herself and she was admitted to the inpt acute rehab unit at [facility] on 05/30/20 for > 3 hours of therapy daily to restore function/independence at or near her he level prior to the surgery. Lucía tells me that the week prior to surgery she had an abd XRAY that showed she was full of stool. She has suffered from constipation and nothing seems to work to relieve this. At admission to the rehab unit she was having some abdominal discomfort and her abd was quite distended and tympanic. She had no N/V. While at the [facility] she had urine retention which I suspect may have been related to constipation. She was also anxious at admission and having some tremors of her hands. An XRAY of the abdomen showed Fecal retention. She was initially placed on Senna and Miralax however the Miralax caused a lot of gas and it was discontinued. Metamucil BID was added to the BID senna with good results. With the aforementioned bowel regimen and Mag Citrate, Dulcolax tabs and suppos itories she was cleaned out and the abd distension and bloating resolved. Her bowels move regularly now with Metamucil and Senna. The Wisdom was discontinued and the urine retention had resolved. Because of the anxiety and constipation we elected to start weaning the Effexor. I believe this helped with resolving the chronic constipation issue and the tremors and anxiety improved as well. The chronic pain in the left leg she was having resolved with the surgery however she persistently c/o BL groin pain and R lateral and anterior thigh pain. 100 mg of Gabapentin was added to her drug regimen and this was effective in controlling the pain. Ambulation and endurance with exercise improved. She did not experience any problems with daytime somnolence. Lucía was c/o insomnia and AM cephalgia (she attributed this to weaning the Effexor however when the respiratory therapists tried a few different CPAP mask with her she settled on a Nasal mask and following transition to this she was sleeping through the night and prior to discharge she was sleeping well with no AM BYRD. She did very well with therapy and had good exercise tolerance prior to DC. She took an occasional Oxycodone 5 mg but did not even average 1 a day for several days prior to DC. Prior to discharge Lucía was ambulating 600 feet independently on various surfaces with her Rollator with no loss of balance. She was also able to ambulate 160 feet without an assistive device however her back pain increased so she was encouraged to continue using the Rollator. She was able to do 12 sit to stands in 30 seconds with bilateral upper extremity support. She could ascend and descend 10 steps with 2 handrails at contact- guard assist. She was able to complete all ADLs independently and OT recommended standby assist with tub/shower transfer at discharge. She demonstrated good understanding of her\spinal precautions in preparation for discharge and could repeat them back to in. She was able to complete a simple snack preparation and tolerate 30 minutes of standing without increase in pain. Lucía also had speech therapy while in rehab and she was educated on internal and external memory strategies. She was able to demonstrate independent use of no taking an association strategies at the time of discharge. Phosphorus was low at presentation to the rehab unit and this was replaced and was within normal limits on recheck. Her hemoglobin reached a low of 8.5 during her time in rehab but prior to discharge the hemoglobin had increased to 10.1. Electrolytes were within normal limits at discharge. TSH was mildly decreased at 0.33 with a free T4 normal at 1.27. After discussion with endocrinology we decreased the daily Levothyroid 112 mcg to 1/2 tab on Sundays and 112 mcg every other day. she should have a TSH and T4 in 4-6 weeks with a goal of maintaining the TSH between 0.5 and 1.0. Vitamin D was a tad low at 29.8 and we added 1,000 IU daily to her daily vitamin D and calcium regimen. She can likely discontinue the additional Vitamin D during the summer months when she spends a lot of time outside. Ana M was discharged home on 06/10/20 in good condition with medications listed elsewhere. She has follow up scheduled with Dr. Rick Otero, Dr. Perla Scruggs and Dr. Kulwinder Chilel post discharge. She will have HHC initially with [facility] PT/OT[facility]ST and will later to transition to OP therapy. No DME was needed. alert and oriented X 3, sitting in a chair at the bedside. NAD, pleasant. Good eye contact. Lungs - CTA with excellent air exchange No carotid bruits, No JVD, no cervical adenopathy HRRR, no gallop and no MM abd - soft and NT, normal BS's, not distended and no guarding with palpation no calf pain and no edema. She did c/o some R ankle pain the day prior to DC but there was no erythema and no increased warmth to touch and a compounded arthritis cream was applied with good pain relief. No rashes and no skin breakdown. The incisions are intact with no kim- incisional erythema and no DC no focal neurologic deficits This note was generated with [employer] dictation software. It may contain incorrect words, spelling, and punctuation that were not noted in checking the note before signing. Patient Problems: Active and Suspected Problems Physical debility (Acute) due to recent Lumbar discectomy and Spinal fusion L4-S1 History of lumbar spinal fusion (Acute) L4-S1 April GERD (gastroesophageal reflux disease) (Acute) History of lumbar discectomy (Acute) L4-5, L5-S1 - Physical Exam Vitals/I&O's: Vital Signs Temp Pulse Resp BP Pulse Ox 97 F L 72 14 122/67 H 100 06/10/20 07:32 06/10/20 09:36 06/10/20 09:36 06/10/20 07:32 06/10/20 09:36 Oxygen Delivery Method Room Air Weight: 124 lb 5.451 oz Body Mass Index (BMI) 21.7 Intake and Output for Last 24 Hours 06/08/20 06/09/20 06/10/20 23:59 23:59 23:59 Intake Total 1280 / 1280 1470 / 1470 460 / 460 Output Total 650 / 650 Balance 1280 / 1280 820 / 820 460 / 460 Laboratory Results 06/10/20 05:47: Hgb 10.1 L, Hct 33.4 L, ESR 13 06/10/20 05:47: Sodium 137, Potassium 4.0, Chloride 104, Carbon Dioxide 29.0, Anion Gap 4 L, BUN 17, Creatinine 0.71, Estim Creat Clear Calc 41.76, Est GFR (MDRD) Af Amer 105, Est GFR (MDRD) Non-Af 87, BUN/Creatinine Ratio 23.9 H, Glucose 108 H, Calcium 9.6 06/10/20 05:47: Phosphorus 4.2 Current Medications Acetaminophen (Acetaminophen 500 Mg Tablet) 1,000 mg PO Q8 [facility] Last Admin: 06/10/20 05:58 Dose: 1,000 mg Documented by: Atorvastatin Calcium (Atorvastatin Calcium 20 Mg Tablet) 20 mg PO QHS [facility] Last Admin: 06/09/20 20:43 Dose: 20 mg Documented by: Calcium Carbonate (Calcium Carbonate 500 Mg Tablet) [facility] Last Admin: 06/10/20 08:33 Dose: 500 mg Documented by: Cholecalciferol (Cholecalciferol (Vit D3) 1,000 Unit (25mcg)) 1,000 unit PO BID [facility] Last Admin: 06/10/20 08:33 Dose: 1,000 unit Documented by: Compound Med (Neuropathy Pain Cream Compound 60 Click Tube) 0 click TOPICAL BID [facility]; Protocol Last Admin: 06/10/20 08:35 Dose: 3 click Documented by: Compound Med (Arthritis Pain Compound 60 Click Tube) 0 click TOPICAL BID [facility]; Protocol Donepezil HCl (Donepezil Hcl 5 Mg Tablet) 5 mg PO QHS [facility] Last Admin: 06/09/20 20:47 Dose: 5 mg Documented by: Famotidine (Famotidine 20 Mg Tablet) 20 mg PO QHS [facility] Last Admin: 06/09/20 20:45 Dose: 20 mg Documented by: Gabapentin (Gabapentin 300 Mg Capsule) 300 mg PO 1900,2100 [facility] Last Admin: 06/09/20 22:31 Dose: 300 mg Documented by: Gabapentin (Gabapentin 100 Mg Capsule) 100 mg PO BIDCM [facility] Last Admin: 06/10/20 08:33 Dose: 100 mg Documented by: Guaifenesin (Guaifenesin 600 Mg Tablet) 600 mg PO QHS [facility] Last Admin: 06/09/20 20:41 Dose: 600 mg Documented by: Hydrocortisone (Hydrocortisone 2.5% Crm) 1 applic TOPICAL TID PRN PRN; Protocol PRN Reason: ITCHING Last Admin: 06/08/20 07:51 Dose: 1 applicatio Documented by: Ipratropium [place] (Ipratropium [place] 0.06% Nasal [place]) 2 spray NASAL TID [facility] Last Admin: 06/10/20 05:59 Dose: 2 spray Documented by: Latanoprost (Latanoprost 0.005% 1 Bottle) 1 drop OPHTHALMIC QHS [facility] Last Admin: 06/09/20 20:47 Dose: 1 drop Documented by: Levothyroxine Sodium (Levothyroxine 112 Mcg Tablet) 56 mcg PO Painter@0600 [facility] Levothyroxine Sodium (Levothyroxine 112 Mcg Tablet) 112 mcg PO MoTuWeThFrSa@0600 [facility] Last Admin: 06/10/20 05:58 Dose: 112 mcg Documented by: Magnesium Hydroxide (Magnesium Hydroxide 30 Ml Udc) 30 ml PO .PRN X 1 PRN PRN Reason: Constipation Last Admin: 05/30/20 20:34 Dose: 30 ml Documented by: Melatonin (Melatonin 3 Mg Tablet) 3 mg PO QHS [facility] Last Admin: 06/09/20 20:47 Dose: 3 mg Documented by: Memantine (Memantine Hydrochloride 10 Mg Tablet) 10 mg PO BID [facility] Last Admin: 06/10/20 08:34 Dose: 10 mg Documented by: Metronidazole (Metronidazole 0.75% 1 Applic Tube) 1 applic TOPICAL DAILY PRN PRN PRN Reason: Rosacea Multivitamins/Minerals (Multivitamins,Ther W-Minerals Tablet) [facility] Last Admin: 06/10/20 08:32 Dose: 1 tablet Documented by: Oxycodone HCl (Oxycodone 5 Mg Tablet) 5 mg PO Q4H PRN PRN PRN Reason: Pain Score 6-10 Last Admin: 06/08/20 10:23 Dose: 5 mg Documented by: Psyllium Hydrophilic Mucilloid (Psyllium 1 Packet) 1 packet PO BID [facility] Last Admin: 06/10/20 08:33 Dose: 1 packet Documented by: Senna/Docusate Sodium (Senna/Docusate Sodium 1 Tablet) 2 tablet PO BID [facility] Last Admin: 06/10/20 08:32 Dose: 2 tablet Documented by: Sertraline HCl (Sertraline 50 Mg Tablet) 25 mg PO DAILY [facility] Sodium Chloride (0.9% Saline Lock 10 Ml Syringe) 10 - 40 ml IV UD PRN PRN Reason: SALINE FLUSH Last Admin: 06/01/20 22:01 Dose: 10 ml Documented by: Venlafaxine HCl (Venlafaxine Xr 37.5 Mg Capsule) 37.5 mg PO DAILY [facility] Last Admin: 06/10/20 08:34 Dose: 37.5 mg Documented by: Discharge Activity: May Not Drive, May not drive while taking narcotic pain medications., May Shower, Use Walker - until you are told by the physical therapist or Dr. Otero that you no longer have to use it., - - Remember BLT! No bending, Lifting or twisting Weight Bearing Status: Full weight bearing Additional Activity Instructions:: ALWAYS use the walker if your are outside of your house for the next few months while it is still cold, snowing and icy.........no falls. Call your doctor if your incision/area has: Continuous Slow Oozing, Sudden Increased Bleeding, Increased Pain/ Swelling, Increased Redness, Foul Smelling Discharge, Swelling at the incision site Call your doctor if you observe: Fever of 101 or Higher, Numbness or Tingling, Inability to urinate, Inability to have a bowel movement, Shortness of breath, Dizziness, Fainting spells, Chest pain, Increased palpitations (irregular heartbeat), Calf discomfort, Uncontrolled pain, - - DO NOT use alcohol with narcotic pain medication. DO NOT make important decisions while taking narcotic medication. Do not drive while taking narcotic medication. If you have problems while taking your medication (rash, itching, nausea etc.) call your primary care doctor. Suture Line Care: Avoid Pulling/Pushing, Avoid Pinching/Bending Cleanse incision/area with: Soap & Water Home Medications: Medications to take at Discharge Alendronate Sodium [Fosamax] 70 mg PO Q7D@0700 05/20/13 Calcium Carbonate/Vitamin D3 [Calcium 600-Vit D3 400 Tablet] 600 units PO TID 05/20/13 Atorvastatin Calcium [Lipitor] 20 mg PO QHS 05/30/20 Diclofenac Sodium [Voltaren] 1 applicatio TOPICAL DAILY PRN 05/30/20 Donepezil HCl 5 mg PO DAILY 05/30/20 Famotidine 20 mg PO QHS 05/30/20 Ipratropium [place] 0.06% [ATROVENT NASAL SPRAY] 2 spray NASAL TID 05/30/20 Latanoprost 0.005% [Xalatan Opthalmic] 1 drp OPHTHALMIC QHS 05/30/20 Melatonin 3 mg PO QHS 05/30/20 Memantine Hydrochloride [Namenda] 10 mg PO BID 05/30/20 Metronidazole [Metrogel Topical] 1 applic TOPICAL DAILY PRN 05/30/20 Multivit with Minerals/Lutein [A Thru Z Select Tablet] 1 ea PO DAILY 05/30/20 Acetaminophen [Tylenol] 1,000 mg PO Q8 PRN tab 06/10/20 Arthritis Pain Compound 0 click TOPICAL BID gm 06/10/20 Cholecalciferol (VIT D3) [Vitamin D3] 1,000 unit PO DAILY #30 tab 06/10/20 Gabapentin [Neurontin] 100 mg PO BIDCM #60 cap 06/10/20 Gabapentin [Neurontin] 300 mg PO 1900,2100 #60 cap 06/10/20 Guaifenesin [Mucinex] 600 mg PO QHS PRN #30 tab 06/10/20 Hydrocortisone 2.5% Crm [Hytone] 1 applic TOPICAL TID PRN PRN #1 tube 06/10/20 Levothyroxine [Synthroid] 112 mcg PO DAILY #30 tab 06/10/20 Multivitamins,Ther W-Minerals [Multivitamin With Minerals ([facility])] 1 tab PO DAILYCM tab 06/10/20 Oxycodone [Oxyir] 5 mg PO Q4H PRN PRN 7 Days #14 tab 06/10/20 Psyllium [Metamucil] 1 packet PO BID packet 06/10/20 Senna/Docusate Sodium [Senokot-S] 2 tab PO BID #120 tab 06/10/20 Sertraline HCl [Zoloft] 25 mg PO DAILY #30 tab 06/10/20 Venlafaxine XR [Effexor Xr] 37.5 mg PO DAILY #14 cap 06/10/20 Following Prescriptions Were Given to Patient: Venlafaxine XR [Effexor Xr] 37.5 mg PO DAILY #14 cap Transmission Status: Received by [id number] Hydrocortisone 2.5% Crm [Hytone] 1 applic TOPICAL TID PRN PRN #1 tube PRN Reason: Itching Transmission Status: Received by [facility] Guaifenesin [Mucinex] 600 mg PO QHS PRN #30 tab PRN Reason: Nasal Congestion Transmission Status: Received by [facility] Gabapentin [Neurontin] 100 mg PO BIDCM #60 cap Transmission Status: Received by [facility] Gabapentin [Neurontin] 300 mg PO 1900,2100 #60 cap Transmission Status: Received by [facility] Oxycodone [Oxyir] 5 mg PO Q4H PRN PRN 7 Days #14 tab PRN Reason: Pain Score 4-10 Transmission Status: Received by [id number] Senna/Docusate Sodium [Senokot-S] 2 tab PO BID #120 tab Transmission Status: Received by [facility] Levothyroxine [Synthroid] 112 mcg PO DAILY #30 tab Transmission Status: Received by [facility] Cholecalciferol (VIT D3) [Vitamin D3] 1,000 unit PO DAILY #30 tab Transmission Status: Received by [facility] Sertraline HCl [Zoloft] 25 mg PO DAILY #30 tab Transmission Status: Received by [facility] Primary Care Physician: Perla Scruggs MD [Primary Care Provider] - Please Follow Up With: Dr Otero Please Follow Up With: Perla Scruggs MD (PCP) Please Follow Up With: Kulwinder Chilel MD Disposition: Home with Home Health Minutes spent on discharge:: 45 Patient Condition:: Good Medical Necessity - Tobacco Use Smoking Status: Never smoker Tobacco Use: Non-smoker Meaningful Use Info Meaningful Use Diagnoses (Choose all that apply): None applicable Inpatient E&M: [id number] [facility]
[2020-06-10] MEDS: Arthritis Pain Compound 60 CLICK TUBE TOPICAL ×2 (12:21→21:43)
[2020-06-10] MEDS: Gabapentin 300 MG Capsule PO ×2 (18:15→21:02)
[2020-06-10 19:44] VITALS: BP 136/65; PULSE 78; RESP 16; TEMP 36.6; O2SAT 100
[2020-06-10] MEDS: Famotidine 20 MG Tablet PO (21:34)
[2020-06-10] MEDS: Atorvastatin Calcium 20 MG Tablet PO (21:34)
[2020-06-10] MEDS: MELATONIN 3 MG TABLET PO (21:34)
[2020-06-10] MEDS: Donepezil HCl 5 MG Tablet PO (21:36)
[2020-06-10] MEDS: Latanoprost 0.005% 1 Bottle 1 DRP OPHTHALMIC (21:47)
[2020-06-10] MEDS: guaiFENesin 600 MG Tablet PO (22:30)
[2020-06-11] MEDS: Acetaminophen 500 MG Tablet 1000 MG PO (05:04)
[2020-06-11] MEDS: Ipratropium Bromide 0.06% NASAL SPRAY 2 SPRAY NASAL (05:05)
[2020-06-11] MEDS: Levothyroxine 112 MCG Tablet PO (05:06)
[2020-06-11 07:30] VITALS: BP 116/66; PULSE 80; RESP 16; TEMP 36.4; O2SAT 100
[2020-06-11] MEDS: Calcium Carbonate 500 MG Tablet PO (08:17)
[2020-06-11] MEDS: Gabapentin 100 MG Capsule PO (08:17)
[2020-06-11] MEDS: Multivitamins,Ther W-Minerals Tablet 1 TABLET PO (08:17)
[2020-06-11] MEDS: Psyllium 1 PACKET PO (08:18)
[2020-06-11] MEDS: Senna/Docusate Sodium 1 Tablet 2 TABLET PO (08:18)
[2020-06-11] MEDS: Venlafaxine XR 37.5 MG Capsule PO (08:18)
[2020-06-11] MEDS: Memantine Hydrochloride 10 MG Tablet PO (08:18)
[2020-06-11] MEDS: oxyCODONE 5 MG Tablet PO (08:21)
[2020-06-11] MEDS: Arthritis Pain Compound 60 CLICK TUBE TOPICAL (08:27)
[2020-06-11 12:30] VITALS: BP 116/66; PULSE 80; RESP 16; TEMP 36.4; O2SAT 100
--- NOTE | 2020-06-11 12:30 | NURSING ---
Discharge instruct and wound care instruct given to patient and daughter and verbalized understanding.
== END 2020-06-11 12:30 | disposition home health service (06) | DRG 560 ==
LOC: RU 17:13
PROVIDERS: Admitting Provider Internal Medicine; PCP Family Medicine; Visit Provider Internal Medicine
DX: Z47.89 Encounter for other orthopedic aftercare (principal); D62 Acute posthemorrhagic anemia; Z98.1 Arthrodesis status; E78.5 Hyperlipidemia, unspecified; E06.3 Autoimmune thyroiditis; F02.80 Dementia in other diseases classified elsewhere, unspecified severity, without behavioral disturbance, psychotic disturbance, mood disturbance, and anxiety; G30.9 Alzheimer's disease, unspecified; G47.33 Obstructive sleep apnea (adult) (pediatric); K21.9 Gastro-esophageal reflux disease without esophagitis; F41.9 Anxiety disorder, unspecified; H40.9 Unspecified glaucoma; L71.9 Rosacea, unspecified; K59.09 Other constipation; K64.4 Residual hemorrhoidal skin tags; M54.10 Radiculopathy, site unspecified; M19.90 Unspecified osteoarthritis, unspecified site
CPT/HCPCS: 36415; 74018; 80048; 80053; 81001; 82274; 82306; 83735; 84100; 84439; 84443; 85014; 85018; 85027; 85652; 92507; 92523; 97110; 97116; 97162; 97166; 97530; 97535; 97802; 97803; J7050; A4216

== ENCOUNTER 2024-03-24 12:09 | Outpatient (RCR) | payer MEDICARE, SELFPAY | END 2024-03-28 23:59 | LOC: NS 12:09 | PROVIDERS: PCP Family Medicine; Visit Provider Internal Medicine Medical Oncology | DX: Z71.3 Dietary counseling and surveillance (principal) ==

== ENCOUNTER 2024-06-20 13:10 | Emergency (ER) | payer MEDICARE, SELFPAY ==
[2024-06-20 13:11] VITALS: BP 117/51; PULSE 80; RESP 16; TEMP 36.3; O2SAT 100; BMI 21.9
--- NOTE | 2024-06-20 13:37 | EX.ED.DYSGE1 ---
HPI <NADER Reed - Last Filed: 06/20/24 16:46> History of Present Illness Chief Complaint: Allergic Reaction Narrative Narrative: 68-year-old female presents with a rash. She states in fall 2023 she had an episode of severe joint pain and was diagnosed as likely having PMR. She has slowly tapering down her prednisone every 2 weeks and was most recently on 5 mg. One month ago she was started on hydrochloroquine and 2 weeks later developed a generalized rash starting from her head spreading down her body. The rash also had small blisters in several spots including her hands and dry peeling skin. Her primary care doctor started her on a prednisone taper of 40 mg. She followed up with a parts department manager at [facility], Dr. Morris, on June 16 who did a pending biopsy and recommended extending the prednisone 40 mg to a total of 10 days. She then decreased to prednisone 30 mg and is on day 3 of this. However over the last 3 days her rash has seemed to worsen on her chest and both lower legs have developed edema and clear seeping fluid. She denies fever or purulent drainage. She states dermatology did a full oral and genital mucosal exam and did not think it was Sreekanth Ravi syndrome. They suspected a severe allergic reaction to hydrochloroquine. [facility] <NADER Reed - Last Filed: 06/20/24 16:46> [facility] Medical History Depression Seasonal allergies Leukocytosis Home Medications ?Medication ?Instructions ?Recorded ?Last Taken ?Type calcium 600 mg (as 600 units PO TID supplement 05/20/13 Unknown History carbonate)-vitamin D3 10 mcg (400 unit) tablet (Calcium 600 + D(3)) atorvastatin 20 mg tablet 20 mg PO QHS Cholestrol 05/30/20 Unknown History diclofenac sodium 1 % topical gel 1 applicatio topical DAILY PRN 05/30/20 Unknown History Pain 1-10 Or Fever donepezil 5 mg tablet 5 mg PO DAILY memory 05/30/20 Unknown History famotidine 20 mg tablet 20 mg PO QHS Stomach acid 05/30/20 Unknown History ipratropium bromide 42 mcg (0.06 2 spray NASAL TID allergies 05/30/20 Unknown History %) nasal spray latanoprost 0.005 % eye drops 1 drp ophthalmic (eye) QHS Eye 05/30/20 Unknown History drops melatonin 3 mg capsule 3 mg PO QHS sleep 05/30/20 Unknown History memantine 10 mg tablet 10 mg PO BID Memory 05/30/20 Unknown History metronidazole 1 % topical gel 1 applic topical DAILY PRN Rosacea 05/30/20 Unknown History Arthritis Pain Compound 0 click topical BID 06/10/20 Unknown Rx acetaminophen 500 mg tablet 1,000 mg (2 x 500 mg) PO Q8 PRN 06/10/20 Unknown Rx pain 1-3 guaifenesin 600 mg tablet, 600 mg PO QHS PRN Nasal Congestion 06/10/20 Unknown Rx extended release 12 hr #30 tabs hydrocortisone 2.5 % topical cream 1 applic topical TID PRN PRN 06/10/20 Unknown Rx Itching #1 tube levothyroxine 112 mcg tablet 112 mcg PO DAILY Thyroid #30 tabs 06/10/20 Unknown Rx multivitamin,[id number] 27 1 tab PO DAILYCM 06/10/20 Unknown Rx mg-0.4 mg tablet psyllium husk (aspartame) 3.4 gram 1 packet PO BID 06/10/20 Unknown Rx oral powder packet sennosides 8.6 mg-docusate sodium 2 tab PO BID #120 tabs 06/10/20 Unknown Rx 50 mg tablet sertraline 50 mg tablet 50 mg PO DAILY #30 tabs 06/28/20 Unknown Rx cetirizine 10 mg tablet (All Day 10 mg PO QDAY PRN 03/05/24 Unknown History Allergy (cetirizine)) prednisone 10 mg tablet 10 mg PO QDAY PRN 03/05/24 Unknown History timolol 0.5 % eye drops 1 drp ophthalmic (eye) QDAY 03/05/24 Unknown History ferrous gluconate 324 mg (38 mg 324 mg PO QDAY #90 tabs 03/12/24 Unknown Rx iron) tablet polysaccharide iron complex 150 mg 150 mg PO ONCE 90 days #90 caps 03/12/24 Unknown Rx iron capsule (Ferrex) Allergy/AdvReac Type Severity Reaction Status Date / Time ethinyl estradiol (From Allergy Other Verified 06/20/24 13:16 Seasonale (91)) levonorgestrel (From Allergy Other Verified 06/20/24 13:16 Seasonale (91)) hydroxychloroquine AdvReac Severe Rash Verified 06/20/24 13:16 Family History Father Mental disorder Mother Diabetes Grandmother Cancer Sister CVA (cerebral vascular accident) Brain tumor Surgical History H/O dilation and curettage Hx of knee surgery Hx of tonsillectomy History of back surgery Social History Smoking Status: Never smoker alcohol intake: current alcohol intake frequency: holidays/special occasions only substance use type: does not use ROS <NADER Reed - Last Filed: 06/20/24 16:46> ROS ED ROS Narrative Constitutional: Negative for fever, chills. Respiratory: Negative for shortness of breath. GI: Negative for abdominal pain, nausea, vomiting. Skin: Positive for rash. EXAM <NADER Reed - Last Filed: 06/20/24 16:46> Physical Exam Narrative Exam Narrative: CONST: Patient sitting in no acute distress. EYES: Normal inspection. ENT: Normal inspection, moist mucous membranes and no mucosal lesions. NECK: Normal inspection. RESP: No respiratory distress, CTAB. CVS: Regular rate and rhythm, no murmur, no gallop. SKIN: Diffuse maculopapular rash scattered across her neck, thorax, and upper lower extremities. Dense coalesced areas of erythema on both dorsal wrist and hand area with out blistering under the skin. There is also scattered dry peeling skin. Heavy area of redness/rash bilateral lower legs with mild edema and clear serosanguineous fluid on her bandages. There are no open wounds, no odor or purulent drainage. EXTREMITIES: Normal appearance, no pedal edema. NEURO: Alert and answering questions appropriately. PSYCH: Normal affect. Const Vital Signs: 06/20/24 13:11 06/20/24 14:59 Temperature 97.4 F L 97.9 F Temperature Source Oral Pulse Rate 80 79 Respiratory Rate 16 16 Blood Pressure 117/51 L 112/64 Blood Pressure Mean 73 80 Pulse Ox 100 99 <Dr. Brijesh Bee MD - Last Filed: 06/20/24 15:29> Physical Exam Const Vital Signs: 06/20/24 13:11 06/20/24 14:59 Temperature 97.4 F L 97.9 F Temperature Source Oral Pulse Rate 80 79 Respiratory Rate 16 16 Blood Pressure 117/51 L 112/64 Blood Pressure Mean 73 80 Pulse Ox 100 99 MDM <NADER Reed - Last Filed: 06/20/24 16:46> [facility] Narrative Medical decision making narrative: History gathered from: Patient and daughter 68-year-old female developed a generalized rash after being on hydroxychloroquine for 2 weeks. This medication was discontinued and she is on a prednisone taper. Dermatology performed a biopsy which is pending. She has worsening rash and edema in both legs prompting her visit today. She appears well and nontoxic. Afebrile and hemodynamically stable. She has a diffuse patchy maculopapular rash. There is patches of coalescent erythema mostly on the hands and calf/ankle areas. There are some skin exfoliation and a couple small blisters. She has no oral mucosal lesions and nothing that looks infected or purulent. Dermatology felt this was most likely a drug reaction rash and hydrochloroquine does include a possible side effect of blistering, peeling skin. Labs show white count 21.9 from her recent steroids. Her glucose is 353 which is new?she is not diabetic. This is likely prednisone induced. Her PCP is Dr. Perla Scruggs. I spoke with the on-call physician at their clinic who states she will send a message to Dr. Scruggs and they will reach out to the patient over the next few days to initiate insulin or medication to manage her blood sugars while she is on redness zone. I recommended close follow-up with PCP and dermatology and patient was agreeable with this plan and discharged in stable condition. Lab Data Attestation: I reviewed the patient's lab results. Labs: Laboratory Results - last 24 hr 06/20/24 14:05 WBC 21.9 H RBC 4.03 L Hgb 12.1 Hct 37.6 MCV 93.3 MCH 30.0 MCHC 32.2 RDW Std Deviation 43.1 RDW Coeff of Carol 12.6 Plt Count 316 MPV 9.2 Immature Gran % (Auto) 4.300 H Neut % (Auto) 88.5 H Lymph % (Auto) 3.7 L Weston % (Auto) 1.8 Eos % (Auto) 1.0 Baso % (Auto) 0.7 Absolute Neuts (auto) 19.3 H Absolute Lymphs (auto) 0.80 L Nucleated RBC % 0 Sodium 136 Potassium 3.9 Chloride 101 Carbon Dioxide 26.0 Anion Gap 9 BUN 10 Creatinine 0.98 Estim Creat Clear Calc 40.31 Est GFR (MDRD) Af Amer 72 Est GFR (MDRD) Non-Af 60 BUN/Creatinine Ratio 10.2 Glucose 353 H Calcium 9.1 <Dr. Brijesh Bee MD - Last Filed: 06/20/24 15:29> [facility] Lab Data Labs: Laboratory Results - last 24 hr 06/20/24 14:05 WBC 21.9 H RBC 4.03 L Hgb 12.1 Hct 37.6 MCV 93.3 MCH 30.0 MCHC 32.2 RDW Std Deviation 43.1 RDW Coeff of Carol 12.6 Plt Count 316 MPV 9.2 Immature Gran % (Auto) 4.300 H Neut % (Auto) 88.5 H Lymph % (Auto) 3.7 L Weston % (Auto) 1.8 Eos % (Auto) 1.0 Baso % (Auto) 0.7 Absolute Neuts (auto) 19.3 H Absolute Lymphs (auto) 0.80 L Nucleated RBC % 0 Sodium 136 Potassium 3.9 Chloride 101 Carbon Dioxide 26.0 Anion Gap 9 BUN 10 Creatinine 0.98 Estim Creat Clear Calc 40.31 Est GFR (MDRD) Af Amer 72 Est GFR (MDRD) Non-Af 60 BUN/Creatinine Ratio 10.2 Glucose 353 H Calcium 9.1 Treatment and Re-Evaluation Comments:: I have personally performed a face to face assessment of the patient and have reviewed the WILLY Note. I performed a substantive portion of the visit including all aspects of the following. My denton findings include: History is diffuse body erythematous rash that started 2 weeks into taking hydroxychloroquine for possible PMR, was already on prednisone. Hydroxychloroquine discontinued, saw dermatology, biopsy performed, now started tapering prednisone 40 mg that she was on for 10 days down to 30 mg 3 days ago, and since then the rash has worsened in the legs and become more apparent in the upper body. No systemic symptoms or fevers. Denies any oral discomfort/involvement. No pruritus. On no other new medications except for the prednisone. Exam is well-appearing in no distress. Diffuse rash, patchy. Patches of nonblanching erythema most prominent just proximal to ankles where it is mildly tender as well as wrists and distal forearms. There are scattered small patches on the upper chest and neck. There are some areas that are exfoliating like on the wrists and hands. There are a couple of small bullae that have burst and are seeping clear fluid on the lower legs but no bullae elsewhere. No petechia. Nothing that definitely looks purpuric or ecchymotic. Oral mucous membranes normal and without any lesions. Medical Decison Making patient is nontoxic with normal vital signs. She states the parts department manager who did a biopsy, the results are not yet returned, said that some of this resembled Joyce-Ravi's but they did not think that this was a Joyce-Ravi syndrome. I advised them that based on this I would certainly not had an antibiotic or any other empiric therapy that could confuse the picture or potentially make things worse, as antibiotics are higher risk than most other classes for causing Joyce-Ravi syndrome. Give her the option of increasing the prednisone back to 40 mg a day until after the weekend when she can follow-up with her parts department manager, as today is Saturday and we would not be able to contact anyone. She does not meet any criteria for inpatient disposition. She is not septic or losing a lot of fluid through the mild seeping from the bullae on her legs. We did some basic labs and I interpreted those, there is no thrombocytopenia or anemia to suggest DIC or purpuric process. She has a leukocytosis consistent with the prednisone, and unexpected is her blood sugar above 300 area. See above we discussed with her PCP, and they will help to manage this as she will still need to be on the prednisone. Close outpatient follow-up with dermatology reasonable. Other additions or changes: [None] Discharge Plan Triage Chief Complaint: Allergic Reaction ED Midlevel Provider: Sarah Moses ED Provider: Brijesh Bee Dx/Rx/DC Orders Clinical Impression: Drug eruption, Acute hyperglycemia, Leukocytosis, Steroid side effects Instructions: ED Drug Reaction, Other, ED Hyperglycemia New Poss Diabetes Prescriptions: No Action cetirizine [All Day Allergy (cetirizine)] 10 mg tablet 10 mg PO QDAY PRN timolol 0.5 % drops 1 drp ophthalmic (eye) QDAY prednisone 10 mg tablet 10 mg PO QDAY PRN Patient Comments: tapering dose polysaccharide iron complex [Ferrex 150] 150 mg iron capsule 150 mg PO ONCE 90 Days Qty: 90 3RF calcium carbonate-vitamin D3 [Calcium 600 + D(3)] 1 EACH tablet 600 units PO TID latanoprost 1 DROP bottle 1 drp OPHTHALMIC QHS atorvastatin 20 MG tablet 20 mg PO QHS donepezil 5 MG tablet 5 mg PO DAILY famotidine 20 MG tablet 20 mg PO QHS ipratropium bromide 1 SPRAY spray,non-aerosol 2 spray NASAL TID memantine 10 MG tablet 10 mg PO BID metronidazole 60 GM gel 1 applic TOPICAL DAILY PRN (Reason: Rosacea) diclofenac sodium 1 APPLIC gel 1 applicatio TOPICAL DAILY PRN (Reason: Pain 1-10 Or Fever) melatonin 3 MG capsule 3 mg PO QHS Arthritis Pain Compound 60 CLICK Gm 0 click TOPICAL BID 0RF sennosides-docusate sodium 1 TABLET tablet 2 tab PO BID Qty: 120 0RF acetaminophen 500 MG tablet 1,000 mg PO Q8 PRN (Reason: pain 1-3) 0RF hydrocortisone 1 APPLIC cream 1 applic TOPICAL TID PRN PRN (Reason: Itching) Qty: 1 0RF Protocol: *Topical Application Instructions APPLICATION INSTRUCTIONS: Apply to back Rx Instructions: apply to the back up to 3 times a day for itching multivitamin,[id number] 1 TABLET tablet 1 tab PO DAILYCM 0RF psyllium husk (aspartame) 1 PACKET packet 1 packet PO BID 0RF guaifenesin 600 MG tablet 600 mg PO QHS PRN (Reason: Nasal Congestion) Qty: 30 0RF levothyroxine 112 MCG tablet 112 mcg PO DAILY Qty: 30 0RF Rx Instructions: take 1 tab daily except on Sundays you will take only 1/2 tab sertraline 50 MG tablet 50 mg PO DAILY Qty: 30 0RF ferrous gluconate 324 mg (38 mg iron) tablet 324 mg PO QDAY Qty: 90 3RF Primary Care Provider: Perla Scruggs Referrals: Perla Scruggs MD [Primary Care Provider] - Activity Restrictions/Additional Instructions: Your blood sugar was 353 so I spoke with a physician at Dr. Scruggs's office. She states they will reach out to you soon to discuss if you need to be on any medications to control your blood sugar. I also recommend you call your parts department manager on Saturday for further instructions regarding your prednisone. Print Language: Omani Disposition Disposition: Home, Self Care Discharge Date/Time: 06/20/24 15:07
[2024-06-20 14:13] LABS: Absolute Neutrophil Count 19.3 X10^3/uL (2.0-7.7); Basophil# 0.16 X10^3/uL; Basophil% 0.7 % (0-1); Eosinophil# 0.21 X10^3/uL; Hematocrit 37.6 % (37-47); Hemoglobin 12.1 g/dL (12.0-15.0); Lymphocyte % 3.7 % (19-41); Mean Corp Hgb Conc 32.2 g/dL (32-36); Mean Corpuscular Volume 93.3 fL (81-99); Mean Platelet Vol. 9.2 fl (6.2-12.0); Monocyte% 1.8 % (0-10); NRBC Flagged by Analyzer 0 % (0-5); Neutrophil # 19.33 X10^3/uL (2.7-7.7); Neutrophil % 88.5 % (47-70); Platelet Count 316 K/mm3 (150-450); RBC Distribution Width CV 12.6 % (11.6-14.6); RBC Distribution Width SD 43.1 fl (35.1-43.9); Red Blood Count 4.03 M/mm3 (4.2-5.4); White Blood Count 21.9 K/mm3 (4.4-11.0)
[2024-06-20 14:23] LABS: Anion Gap 9 (5-15); BUN 10 mg/dL (7-18); BUN/Creat Ratio 10.2 RATIO (10-20); Calcium,Total 9.1 mg/dL (8.5-10.1); Chloride 101 mmol/L (98-107); Creatinine, Serum 0.98 mg/dL (0.55-1.02); EST Glomerular Filtration Rate 60 mL/min (>60); Est Glom Filt Rate - Afr Amer 72 mL/min (>60); Estimated Creatinine Clearance 40.31 ml/min; Glucose 353 mg/dL (74-106); Potassium 3.9 mmol/L (3.5-5.1); Sodium Level 136 mmol/L (136-145)
[2024-06-20 14:59] VITALS: BP 112/64; PULSE 79; RESP 16; TEMP 36.6; O2SAT 99
== END 2024-06-20 15:07 | disposition home or self-care (01) ==
PROVIDERS: Physician Assistant; Emergency Provider Emergency Medicine; PCP Family Medicine; Referring Provider Emergency Medicine; Visit Provider Emergency Medicine
DX: R21 Rash and other nonspecific skin eruption (principal); T50.905A Adverse effect of unspecified drugs, medicaments and biological substances, initial encounter; R73.9 Hyperglycemia, unspecified; D72.829 Elevated white blood cell count, unspecified
CPT/HCPCS: 36415; 80048; 85025; 99282